=== PATIENT | female | born 1960 | race Caucasian/White ===

== ENCOUNTER 2017-06-08 11:16 | Emergency (ER) | payer OTHER ==
[2017-06-08 11:50] VITALS: BP 150/120
--- NOTE | 2017-06-08 11:55 | ED ---
Abdominal Pain/Female - HPI Summary HPI Summary: Pt here w/ epigastric pain radiating to her shoulder blades. This started late last night and has been intermittently persisting. Pain also radiates up into jaw however she reports this is better w/ Gas-x. She's also noticed dark urine this morning. Denies pain w/ urination, frequency, hesitation or vaginal d/c, lower ab /pelvic pain, flank pain (other than chronic LBP), nausea, vomiting, fever, chills, SERNA. She did have a bout of diarrhea and ab bloating is better since. She admits to a bout of same pain w/ all these sx last month - lasted a few hours then resolved on its own. Still has her gallbladder. H/o HTN - was on med in past but has been well controlled off med so hasn't been taking - takes narcotic pain meds for chronic pain - perhaps this reduced BP rendering her anti-hypertensive unnecessary? She reports BP is typically 120' s/70's - she admits she's in 7/10 pain at the moment but does not want anything - just wants to know what's going on and get it addressed. Denies chest pain, SOB, bloody cough, extremity pain or coolness. H/o surgery w/o difficulty/complications. H/o normal ECG's (none on file here for comparison). NOTE: had lower teeth extracted recently. Is on anbx but reports she had all same sx last month when she did not have dental surgery nor was she on anbx at that time. - History of Current Complaint Chief Complaint: UCGU Stated Complaint: ABD PAIN, DARK URINE Time Seen by Provider: 06/08/17 11:36 Hx Obtained From: Patient Pain Intensity: 7 Allergies/Adverse Reactions: Allergies Allergy/AdvReac Type Severity Reaction Status Date / Time codeine Allergy Vomiting Verified 06/08/17 11:27 [facility] Allergy Vomiting Verified 06/08/17 11:27 Home Medications: Home Medications Amitriptyline TAB* [Elavil TAB*] 25 mg PO BEDTIME 06/08/17 [History Confirmed ] Cephalexin CAP* [Keflex CAP*] 500 mg PO TID 06/08/17 [History Confirmed 06/08/17 ] Cyclobenzaprine TAB* [Flexeril 10 MG TAB*] 10 mg PO TID 06/08/17 [History Confirmed 06/08/17] Diclofenac Potassium [Zipsor] 25 mg PO TID 06/08/17 [History Confirmed 06/08/17] PMH/Surg Hx/FS Hx/Imm Hx Previously Healthy: Yes Endocrine/Hematology History: Denies: Hx Anticoagulant Therapy, Hx Blood Disorders, Hx Diabetes, Hx Thyroid Disease Cardiovascular History: Reports: Hx Hypertension - h/o - not on meds - has been well controlled Respiratory History: Reports: Other Respiratory Problems/Disorders - CHRONIC TOBBACO USE Denies: Hx Asthma - childhood asthma, Hx Chronic Obstructive Pulmonary Disease (COPD), Hx Sleep Apnea GI History: Denies: Hx Ulcer, Other GI Disorders Musculoskeletal History: Reports: Hx Scoliosis Sensory History: Denies: Hx Contacts or Glasses, Hx Hearing Aid Opthamlomology History: Denies: Hx Contacts or Glasses Neurological History: Reports: Hx Headaches Denies: Other Neuro Impairments/Disorders Psychiatric History: Reports: Hx Anxiety - Surgical History Surgery Procedure, Year, and Place: APPY AT AGE 19 [place]. PARTIAL HYSTERECTOMY, [facility]. REMOVED OVARY,[facility]. RIGHT KNEE ARTHROSCOPY, [facility]. RIGHT ARM TENDON RELEASE, [facility]. C6-C7 FUSION 2012, [place] Hx Anesthesia Reactions: No Infectious Disease History: No Infectious Disease History: Denies: Hx Hepatitis, Hx Human Immunodeficiency Virus (HIV), Traveled Outside the in Last 30 Days - Family History Known Family History: Positive: None - Social History Alcohol Use: Rare Hx Substance Use: No Substance Use Type: Reports: None Hx Tobacco Use: Yes Smoking Status (MU): Current Every Day Smoker Type: Cigarettes Amount Used/How Often: 3/4 PPD Length of Time of Smoking/Using Tobacco: 36 YEARS Review of Systems Constitutional: Negative Negative: Fever, Chills, Fatigue Eyes: Negative ENT: Other - dental extraction as mentioned Negative: Sore Throat Cardiovascular: Negative Negative: Chest Pain Respiratory: Negative Negative: Shortness Of Breath, Cough Positive: Abdominal Pain, Diarrhea Positive: see HPI Musculoskeletal: Negative Skin: Negative Neurological: Negative Psychological: Normal All Other Systems Reviewed And Are Negative: Yes Physical Exam Triage Information Reviewed: Yes Vital Signs On Initial Exam: Initial Vitals Temp Pulse Resp BP Pulse Ox 96.8 F 103 18 176/116 98 06/08/17 11:22 06/08/17 11:22 06/08/17 11:22 06/08/17 11:22 06/08/17 11:22 Vital Signs Reviewed: Yes Appearance: Positive: Well-Appearing, Well-Nourished, Pain Distress - appears to be in mild to moderate distress - pleasant, calm, cooperative Skin: Positive: Warm, Skin Color Reflects Adequate Perfusion, Dry Head/Face: Positive: Normal Head/Face Inspection Eyes: Positive: Normal, EOMI, Conjunctiva Clear - anicteric sclera ENT: Positive: Hearing grossly normal, Pharynx normal, Other - skin along mandible w/ healing ecchymosis (yellowish discoloration). Negative: Nasal drainage Neck: Positive: Supple, Nontender, No Lymphadenopathy Respiratory/Lung Sounds: Positive: Clear to Auscultation, Breath Sounds Present. Negative: Rales, Rhonchi, Stridor, Wheezes Cardiovascular: Positive: Pulses are Symmetrical in both Upper and Lower Extremities, S1, S2 - occasional irregular beat (PVC?). Negative: Murmur, Rub Abdomen Description: Positive: No Organomegaly, Soft, Distended - MILD, Other: - (+) Purcell'S SIGN. Negative: CVA Tenderness (R), CVA Tenderness (L), Guarding , Hernia @, Pulsatile Mass Bowel Sounds: Positive: Present Musculoskeletal: Positive: Normal, Strength/ROM Intact Neurological: Positive: Normal, Sensory/Motor Intact, Alert, Oriented to Person Place, Time, CN Intact II-III Psychiatric: Positive: Normal Diagnostics - Vital Signs Vital Signs Temp Pulse Resp BP Pulse Ox 06/08/17 11:48 97.8 F 90 17 150/120 98 06/08/17 11:22 96.8 F 103 18 176/116 98 - Laboratory Lab Results: Lab Results 06/08/17 Range/Units 11:35 POC Urine Color Yellow POC Urine Clarity Clear POC Urine pH 6.5 (5-9) POC Ur Specif [place] <= 1.005 L (1.010-1.030) POC Urine Protein Negative (Negative) POC Ur Glucose (UA) Negative (Negative) POC Urine Ketones Negative (Negative) POC Urine Blood Negative (Negative) POC Urine Nitrite Negative (Negative) POC Urine Bilirubin Negative (Negative) POC Urine Urobilinogen 0.2 (Negative) POC U Leukocyte Esteras Negative (Negative) Lab Statement: Any lab studies that have been ordered have been reviewed, and results considered in the medical decision making process. Abdominal Pain Fem Course/Dx - Course Course Of Treatment: Pt presents w/ epigastric pain radiating to back between shoulder blades w/ diarrhea and dark urine. She had jaw pain and ab bloating but this is better now since diarrhea and taking gas-x. She reports a h/o all same sx 1 month ago which lasted a few hours then resolved on it's own. H/o HTN but has not been taking anti-hypertensives as BP has been well controlled ( 120's/70's). BP is elevated today - could be compensatory response or from pain - ECG checked and is NSR w/o ST elevations, she does have some PVC's. Denies CP, SOB, bloody cough, fever. Urine clear here. Suspect gallbladder d/o clinically however needs labs, imaging. Also w/ h/o HTN and smoking, need to r/ o emergent pathologies (cardiac/pulmonary/vascular issue). Sent to ED - strongly urged to take ambulance however pt declined and opted to drive herself. No meds given prior to departure. Discussed w/ JANEE Olson in ED. NOTE : Last had coffee w/ artifical creamer this morning - otherwise hasn't eaten/ drank since before pain started last night. Has dentures along maxilla. No issues w/ previous anesthesia and denies pulm issues, sleep apnea (chart indicates asthma). - Diagnoses Provider Diagnoses: Abdominal pain - Provider Notifications Discussed Care Of Patient With: Ar Haddad Discharge - Sign-Out/Discharge Documenting (check all that apply): Discharge - Discharge Plan Condition: Guarded Disposition: TRANS HIGHER LVL OF CARE FAC Patient Education Materials: Abdominal Pain (ED) Referrals: Shane Melendez MD [Primary Care Provider] - Additional Instructions: It is suspected that your abdominal pain is the result of a gallbladder or liver issue. This is not a definitive diagnosis however and other issues may be present. It is important that you go directly to the Emergency Department for further evaluation. You determined you will go to [facility] at [address] [place] [address] and so a phone call has been made on your behalf. If you feel worse on your way there and cannot drive, fur puller and call 911 for assistance in transport. Your blood pressure was also found to be elevated - this may be from pain however it is important that you follow-up with your PCP to make sure this is not a new issue. - Billing Disposition and Condition Condition: GUARDED Disposition: EMTALA
== END 2017-06-08 12:20 | disposition short-term general hospital (02) ==
LOC: UCEAST 11:16
DX: R10.13 Epigastric pain (principal); I10 Essential (primary) hypertension; M41.9 Scoliosis, unspecified; R51 Headache; F41.9 Anxiety disorder, unspecified; Z88.5 Allergy status to narcotic agent; F17.210 Nicotine dependence, cigarettes, uncomplicated
CPT/HCPCS: 81003; 93005; 99212; G0463

== ENCOUNTER → 2017-06-08 12:41 | Emergency (ER) | payer OTHER ==
[~2017-06-08 12:41] MED LIST: Iohexol 300* (CONTRAST) 10 ML SDV IV ONE; Morphine INJ* 4 MG/ML 1 ML SYRINGE (NEW SYRINGE VERSION) IV ONE; Morphine VIAL* 4 MG/ML VIAL (1 ml vial) IV ONE; Ondansetron INJ* 2 MG/ML VIAL IV ONE
[2017-06-08 13:21] LABS: ABS Basophils 0 10^3/ul (0-0.2); ABS Eosinophils 0.2 10^3/ul (0-0.6); ABS Lymphocytes 1.5 10^3/ul (1.0-4.8); ABS Monocytes 0.4 10^3/ul (0-0.8); ABS Neutrophils 6.9 10^3/ul (1.5-7.7); ABS Nucleated RBC 0 10^3/ul; Hematocrit 47 % (35-47); Hemoglobin 16.2 g/dl (12.0-16.0); Lymphocyte % 16.5 % (25-47); Mean Corpuscular HGB Conc 35 g/dl (31-36); Mean Corpuscular Hemoglobin 32 pg (27-31); Mean Corpuscular Volume 93 fL (80-97); Nucleated Red Blood Cells % 0; Platelet Count 271 10^3/ul (150-450); Red Blood Count 5.04 10^6/ul (4.0-5.4); Red Cell Distribution Width 13 % (10.5-15)
[2017-06-08 13:25] LABS: Urine Appearance Clear; Urine Blood 1+ (Negative); Urine Color Straw; Urine Ketones Negative (Negative); Urine Protein Negative (Negative); Urine Specific Gravity 1.001 (1.010-1.030); Urine Urobilinogen Negative (Negative)
[2017-06-08 13:42] LABS: EGFR Non-African American 82.8 (>60)
--- NOTE | 2017-06-08 13:52 | RAD ---
HISTORY: Abdominal pain COMPARISONS: None TECHNIQUE: Multiple transverse and longitudinal ultrasound images were obtained of the right upper quadrant of the abdomen using grayscale and color Doppler imaging. FINDINGS: LIVER: There is a heterogeneously hyperechoic lesion of the posterior right lobe of liver measuring 7.7 x 3.6 x 6.8 cm in size. There is normal hepatopedal flow of the portal vein on Doppler imaging. BILIARY TREE: There is no intrahepatic or extrahepatic biliary dilatation. The common duct measures 0.3 cm. GALLBLADDER: The gallbladder is well-visualized. There is no cholelithiasis, gallbladder wall thickening, pericholecystic fluid, or sonographic Batres sign. PANCREAS: The head of the pancreas is unremarkable. The tail of the pancreas is not well visualized secondary to overlying bowel gas. RIGHT KIDNEY: The right kidney is normal in shape, size, contour, and echogenicity. There is no hydronephrosis or nephrolithiasis. The right kidney measures 11.6 x 4 x 5.4 cm. AORTA AND IVC: The aorta and IVC are unremarkable. FLUID: There are no pleural effusions. There is no free fluid within the hepatorenal recess. OTHER FINDINGS: None. IMPRESSION: HETEROGENEOUSLY HYPERECHOIC LESION OF THE RIGHT LOBE OF LIVER. WHILE THE DIFFERENTIAL DOES INCLUDE HEMANGIOMA, THE IMAGING APPEARANCE IS INDETERMINATE. RECOMMEND CONSIDERATION OF FURTHER EVALUATION WITH MULTIPHASE CONTRAST-ENHANCED LIVER PROTOCOL CT OR CONTRAST ENHANCED MRI OF THE ABDOMEN, IN THE NONACUTE SETTING.
--- NOTE | 2017-06-08 15:23 | RAD ---
CLINICAL HISTORY: Abdominal pain COMPARISON: Ultrasound dated June 08, 2014 TECHNIQUE: Multiple contiguous axial CT scans were obtained of the abdomen and pelvis after the administration of intravenous contrast. Coronal and sagittal multiplanar reformations are submitted for review. Oral contrast was not administered. FINDINGS: LUNG BASES: The lung bases are clear. LIVER: There is a low-attenuation lesion of the right lobe of liver with peripheral puddling corresponding to the sonographic finding. This measures 6.3 x 5.2 x 3.6 cm on the current examination. BILE DUCTS: There is no intrahepatic or extrahepatic biliary dilatation. GALLBLADDER: The gallbladder is normal, without pericholecystic inflammatory change. PANCREAS: The pancreas is normal, without mass or ductal dilatation. SPLEEN: Normal in size and appearance. UPPER GI TRACT: Evaluation of the gastrointestinal tract is limited by incomplete gastric distention. The upper GI tract is unremarkable. SMALL BOWEL AND MESENTERY: The small bowel is normal in contour, course, and caliber. There is no obstruction or dilatation. COLON: The colon is normal in contour, course, caliber. There is no pericolonic inflammatory change. ADRENALS: Normal bilaterally. KIDNEYS: The kidneys are normal in shape, size, contour, and axis. There is no hydronephrosis or nephrolithiasis. BLADDER: The bladder is smooth in contour. PELVIC ORGANS: The pelvic organs are not visualized. AORTA: There is calcific atherosclerotic disease of the abdominal aorta and its branches, without aneurysmal dilatation IVC: Unremarkable LYMPH NODES: There is no lymphadenopathy by size criteria. ABDOMINAL WALL: There is no evidence for abdominal wall hernia. BONES AND SOFT TISSUES: There is a scoliotic curvature of the spine. Mild degenerative changes are noted. OTHER: None IMPRESSION: THERE IS A LESION OF THE RIGHT LOBE OF LIVER THAT CORRESPONDS TO THE SONOGRAPHIC FINDING. IN THE ABSENCE OF A HISTORY OF MALIGNANCY, THE CT APPEARANCE IS MOST CONSISTENT WITH A LARGE HEMANGIOMA. ATHEROSCLEROSIS. NO ACUTE CT PATHOLOGY OF THE VISUALIZED ABDOMEN OR PELVIS.
[2017-06-08 15:39] VITALS: BP 115/74
--- NOTE | 2017-06-10 07:53 | ED ---
Kin Ojeda Angela, scribed for Ron Tom MD on 06/08/17 at 1302 . Abdominal Pain/Female - HPI Summary HPI Summary: This pt is a 56 y/o female presenting to [facility] referred from [facility] c/o epigastric abd pain since last night. Pt reports her pain radiates up to between her shoulder blades. She additionally notes very dark urine this morning , nausea, and diarrhea. Pt describes diarrhea as dark brown and watery. Denies vomiting, chest pain, fever, chills. Last night pt notes her pain was severe, rating it 10/10 in severity. Currently pt rates her pain 5 out of 10 in severity. Pt notes she has had this pain before about 2 months ago but it resolved on its own. She reports she has a lot of gas pain, similar to today's, and usually takes Gas-X with relief. PMHx: HTN, was on antihypertensive meds but was taken off due to HTN being under control. - History of Current Complaint Chief Complaint: EDChloe Stated Complaint: ABD PAIN- SENT FROM Time Seen by Provider: 06/08/17 12:59 Hx Obtained From: Patient Onset/Duration: Lasting Hours, Still Present Timing: Hours Severity Currently: Moderate Pain Intensity: 5 Pain Scale Used: 0-10 Numeric Location: Epigastric Radiates: Yes Radiates to: Other - between shoulder blades Aggravating Factor(s): Nothing Alleviating Factor(s): Nothing Associated Signs and Symptoms: Positive: Nausea, Diarrhea, Other: - dark urine. Negative: Fever, Chest Pain, Urinary Symptoms, Vomiting Simlar Episode/Dx as:: gas pain 2 months ago Allergies/Adverse Reactions: Allergies Allergy/AdvReac Type Severity Reaction Status Date / Time codeine Allergy Vomiting Verified 06/08/17 12:56 eszopiclone [From Lun[facility]] Allergy Vomiting Verified 06/08/17 12:56 PMH/Surg Hx/FS Hx/Imm Hx Endocrine/Hematology History: Denies: Hx Anticoagulant Therapy, Hx Blood Disorders, Hx Diabetes, Hx Thyroid Disease Cardiovascular History: Reports: Hx Hypertension - h/o - not on meds - has been well controlled Respiratory History: Reports: Other Respiratory Problems/Disorders - CHRONIC TOBBACO USE Denies: Hx Asthma - childhood asthma, Hx Chronic Obstructive Pulmonary Disease (COPD), Hx Sleep Apnea GI History: Denies: Hx Ulcer, Other GI Disorders Musculoskeletal History: Reports: Hx Scoliosis Sensory History: Denies: Hx Contacts or Glasses, Hx Hearing Aid Opthamlomology History: Denies: Hx Contacts or Glasses Neurological History: Reports: Hx Headaches Denies: Other Neuro Impairments/Disorders Psychiatric History: Reports: Hx Anxiety - Surgical History Surgery Procedure, Year, and Place: [facility]Y AT AGE 19 [place]. PARTIAL [facility]STERECTOMY, [facility]. REMOVED OVARY,[facility]. RIGHT KNEE ARTHROSCOPY, [facility]. RIGHT ARM TENDON RELEASE, [facility]. C6-C7 FUSION 2012, [place] Hx Anesthesia Reactions: No Infectious Disease History: No Infectious Disease History: Denies: Hx Hepatitis, Hx Human Immunodeficiency Virus (HIV), Traveled Outside the [place] in Last 30 Days - Family History Known Family History: Positive: Cardiac Disease, Hypertension - Social History Alcohol Use: Rare Hx Substance Use: No Substance Use Type: Reports: None Hx Tobacco Use: Yes Smoking Status (MU): Current Every Day Smoker Type: Cigarettes Amount Used/How Often: 3/4 PPD Length of Time of Smoking/Using Tobacco: 36 YEARS Review of Systems Negative: Fever, Chills Negative: Chest Pain Negative: Shortness Of Breath Positive: Abdominal Pain, Diarrhea, Nausea. Negative: Vomiting Genitourinary: Other - dark urine Musculoskeletal: Other - pain between shoulder blades Skin: Negative Neurological: Negative All Other Systems Reviewed And Are Negative: Yes Physical Exam - Summary Physical Exam Summary: VITAL SIGNS: Reviewed. GENERAL: Patient is a well-developed and nourished female who is lying comfortable in the stretcher. Patient is not in any acute respiratory distress. HEAD AND FACE: Normocephalic and atraumatic. EYES: PERRLA, EOMI x 2, No injected conjunctiva. EARS: Hearing grossly intact. Ear canals and tympanic membranes are WNL. MOUTH: Oropharynx within normal limits. NECK: Supple, trachea is midline, no adenopathy, no JVD. CHEST: Symmetric, no tenderness at palpation LUNGS: Clear to auscultation bilaterally. No wheezing or crackles. CVS: RRR, S1 and S2 present, no murmurs or gallops appreciated. ABDOMEN: Soft, epigastric tenderness. No signs of distention. Positive bowel sounds. No rebound no guarding, and no masses palpated. No abdominal bruit or pulsations. EXTREMITIES: FROM in all major joints, no edema, no cyanosis or clubbing. NEURO: Alert and oriented x 3. No acute neurological deficits. Speech is normal. SKIN: Dry and warm Triage Information Reviewed: Yes Vital Signs On Initial Exam: Initial Vitals Temp Pulse Resp BP Pulse Ox 96.6 F 97 16 156/100 100 06/08/17 12:53 06/08/17 12:53 06/08/17 12:53 06/08/17 12:53 06/08/17 12:53 Vital Signs Reviewed: Yes Diagnostics - Vital Signs Vital Signs Temp Pulse Resp BP Pulse Ox 06/08/17 12:53 96.6 F 97 16 156/100 100 - Laboratory Result Diagrams: 06/08/17 13:05 06/08/17 13:05 Lab Statement: Any lab studies that have been ordered have been reviewed, and results considered in the medical decision making process. - CT Abdomen/Pelvis CT CT Interpretation: No Acute Changes - IMPRESSION: There is a lesion of the right lobe of liver that corresponds to the sonographic finding. In the absence of a history of malignancy, the CT appearance is most consistent with a large hemangioma. Atherosclerosis. No acute CT pathology of the visualized abdomen or pelvis. Dr. Tom has reviewed this radiology report. CT Interpretation Completed By: Radiologist - Ultrasound No standard instances Ultrasound Interpretation: Positive (See Comments) - Gallbladder US IMPRESSION: Heterogeneously hypercholic lesion of the right lobe of liver. While the differential does include hemangioma, the imaging appearance is indeterminate. Recommend consideration of further evaluation with multiphase contrast-enhanced liver protocol CT or contrast enhanced MRI of the abdomen, in the nonacute setting. Dr. Tom has reviewed this radiology report. Ultrasound Interpretation Completed By: Radiologist Re-Evaluation - Re-Evaluation First Eval Re-Evaluation Time: 15:25 Comment: I reviewed the lab, US, and CT results with the pt. Abdominal Pain Fem Course/Dx - Course Course Of Treatment: This pt is a 56 y/o female presenting to [facility] referred from [facility] c/o epigastric abd pain since last night. Pt reports her pain radiates up to between her shoulder blades. She additionally notes very dark urine this morning, nausea, and diarrhea. Pt describes diarrhea as dark brown and watery. Denies vomiting, chest pain, fever, chills. Last night pt notes her pain was severe, rating it 10/10 in severity. Currently pt rates her pain 5 out of 10 in severity. Pt notes she has had this pain before about 2 months ago but it resolved on its own. She reports she has a lot of gas pain, similar to today's, and usually takes Gas-X with relief. Test results without any significant abnormalities except for hemoglobin of 16.2, CRP of 9.18. US gallbladder shows Heterogeneously hypercholic lesion of the right lobe of liver. While the differential does include hemangioma, the imaging appearance is indeterminate. Recommend consideration of further evaluation with multiphase contrast-enhanced liver protocol CT or contrast enhanced MRI of the abdomen, in the nonacute setting. Abdomen/Pelvis CT reveals there is a lesion of the right lobe of liver that corresponds to the sonographic finding. In the absence of a history of malignancy, the CT appearance is most consistent with a large hemangioma. Atherosclerosis. No acute CT pathology of the visualized abdomen or pelvis. In the ED course the pt was given morphine and Zofran. After these medications the pts symptoms have resolved. Therefore she will be discharged to home with follow up from her PCP. I discussed all the findings and test results with the patient. All questions were answered to patient satisfaction. There were no further complaints or concerns. She is instructed to return to the ED for any worsening or new symptoms. Pt is hemodynamically stable, alert and oriented x3. - Diagnoses Provider Diagnoses: Abdominal pain, Liver lesion, right lobe Discharge - Sign-Out/Discharge Documenting (check all that apply): Discharge - discharge to home - Discharge Plan Condition: Stable Disposition: HOME Patient Education Materials: Abdominal Pain (ED) Referrals: Shane Melendez MD [Primary Care Provider] - 3 Days Additional Instructions: Please follow up with your primary care provider. RETURN TO THE ED FOR ANY NEW OR WORSENING SYMPTOMS. The documentation as recorded by the Kin quezada Angela accurately reflects the service I personally performed and the decisions made by me, Ron Tom MD.
== END | disposition home or self-care (01) ==
LOC: ED 12:41
DX: R10.13 Epigastric pain (principal); K76.9 Liver disease, unspecified; R19.7 Diarrhea, unspecified; Z88.8 Allergy status to other drugs, medicaments and biological substances; I10 Essential (primary) hypertension
CPT/HCPCS: 36415; 74177; 76705; 80053; 81003; 81015; 82150; 82550; 83690; 83880; 84484; 85025; 85730; 86140; 99282; J2270; J2405; Q9967

== ENCOUNTER 2018-05-16 05:38 | Inpatient (IN) | payer BC ==
[~2018-05-16 05:38] MED LIST changes: +Buffered Lidocaine 1% SYRIN* 1 ML/SYRINGE INTRADERM ONE; -Iohexol 300* (CONTRAST) 10 ML SDV IV ONE; -Morphine INJ* 4 MG/ML 1 ML SYRINGE (NEW SYRINGE VERSION) IV ONE; -Morphine VIAL* 4 MG/ML VIAL (1 ml vial) IV ONE; -Ondansetron INJ* 2 MG/ML VIAL IV ONE
--- OUTSIDE RECORDS SUMMARY | 2018-05-16 05:42 | XMS REPORT | Continuity of Care Document ---
:1960 External Reference #:[id number] Author Name NeftaliVonnie Care Team Providers Name Role Phone Shane Melendez MD Primary Care Physician Unavailable Payers Date Identification Numbers Payment Provider Subscriber Policy Number: [id number] [facility] Kell Reddy PayID: [id number] [address] [address] [place] [address] Expires: 2018 Policy Number: [id number] [facility] Kell Reddy PayID: [id number] [address] [address] [place] [address] Expires: 2018 Policy Number: [id number] [employer] Kell Reddy PayID: [id number] [address] [place] [address] Advance Directives Description No Information Available Problems Date Description Provider Status Onset: 02/15/2017 Neck pain Ar Hayes M.D. Active Family History Date Family Member(s) Observation Comments General Heart Disease General Hypertension General Cancer Father Hypertension Mother Heart Disease Mother Breast Cancer Siblings 3 Siblings 3 Sister- heart disease and fibromyalgia Brother- Prostate Cancer Social History Type Date Description Comments Sex Unknown Marital Status Lives With Occupation [employer] ETOH Use Rarely consumes alcohol Recreational Drug Use Never Used Drugs Tobacco Use Start: Unknown End: Patient is a former smoker Unknown Smoking Status Reviewed: 04/17/18 Patient is a former smoker Exercise Type/Frequency Exercises sporadically Allergies, Adverse Reactions, Alerts Date Description Reaction Status Severity Comments 02/15/2017 Tylenol With Codeine Active Medications Medication Date Status Form Strength Qnty SIG Indications Ordering Provider Soft Cervical Active 1unit Apply M47.892 Ar Coles 2018 s collar Eliud, and wear M.D. as tolerable . Cyclobenzaprine 00/00/ Active Tablets 10mg one by Unknown HCL 0000 mouth three times a day as needed spasm Vitamin B12 00/ Active Tablets ER 1000mcg 1 by Unknown 0000 mouth every day Lisinopril 00/ Active Tablets 10mg take 1 Unknown 0000 tablet by mouth once daily Lisinopril 02/15/ Hx Tablets 20mg 90tab 1 by Ar Laurent 2017 - s mouth Abigail, 02/14/ every day M.D. 2016 Amitriptyline HCL 00/ Hx Tablets 25mg 1 by Unknown 0000 - mouth 2017 night at bedtime Oxymorphone HCL 00/00/ Hx Tablets ER 5mg one Unknown ER 0000 - 12HR tablet by 02/15/ mouth q6 2016 as needed Zipsor // Hx Capsules 25mg take 3 Unknown 0000 - times a day as 2018 needed Oxymorphone HCL 0000/ Hx Tablets ER 5mg one Unknown ER 0000 - 12HR tablet po bid 2018 Multi For Her /00/ Hx Tablets once a Unknown 0000 - day 2017 Nasonex 00/ Hx Suspension 50mcg/Act use two Unknown 0000 - sprays in 2018 nostril once daily as needed Ativan /00/ Hx Tablets 1mg 1 tab po Unknown 0000 - bid 2016 Boniva /00/ Hx Tablets 150mg once a Unknown 0000 - month 2017 Norvasc /00/ Hx Tablets 2.5mg 1 by Unknown 0000 - mouth 02/14/ every day 2016 Excedrin Migraine 00/00/ Hx Tablets 250-250-6 1 tab Unknown 0000 - 5mg twice a day as 2018 needed for migraine Oxymorphone HCL 00/00/ Hx Tablets 5mg 1 by Unknown 0000 - mouth 12/20/ every 6 2018 hours as needed Immunizations Description No Information Available Vital Signs Date Vital Result Comment 04/17/2018 1:55pm Height 63 inches 5'3" Weight 137.00 lb BP Systolic Sitting 150 mmHg BP Diastolic Sitting 100 mmHg Pain Level 6 BMI (Body Mass Index) 24.3 kg/m2 03/14/2018 11:50am Height 63 inches 5'3" Weight 137.00 lb BP Systolic Sitting 128 mmHg BP Diastolic Sitting 88 mmHg Pain Level 7 BMI (Body Mass Index) 24.3 kg/m2 02/15/2018 1:04pm Height 63 inches 5'3" Weight 137.00 lb BP Systolic Sitting 140 mmHg BP Diastolic Sitting 70 mmHg Pain Level 6 BMI (Body Mass Index) 24.3 kg/m2 01/16/2018 12:58pm Height 63 inches 5'3" Weight 137.00 lb BP Systolic Standing 150 mmHg BP Diastolic Standing 100 mmHg Pain Level 4 BMI (Body Mass Index) 24.3 kg/m2 01/02/2018 2:03pm Height 63 inches 5'3" Weight 137.00 lb BP Systolic Sitting 140 mmHg BP Diastolic Sitting 100 mmHg Pain Level 7 BMI (Body Mass Index) 24.3 kg/m2 12/21/2017 3:15pm Height 63 inches 5'3" Weight 137.50 lb Heart Rate 92 /min BP Systolic Sitting 160 mmHg BP Diastolic Sitting 100 mmHg Body Temperature 98.0 F Pain Level 7 BMI (Body Mass Index) 24.4 kg/m2 12/13/2017 1:48pm Height 65 inches 5'5" Weight 135.00 lb Heart Rate 89 /min BP Systolic 132 mmHg BP Diastolic 89 mmHg Body Temperature 98.2 F BMI (Body Mass Index) 22.5 kg/m2 02/15/2017 10:08am Height 65 inches 5'5" Weight 150.00 lb Heart Rate 92 /min BP Systolic Sitting 170 mmHg BP Diastolic Sitting 98 mmHg Respiratory Rate 16 /min BMI (Body Mass Index) 25.0 kg/m2 Results Description No Information Available Procedures Date Code Description Status 03/28/2018 05798 Nerve Conduction 07-08 Studies Completed 03/28/2018 40545 Needle Electromyography Complete, Five Or More Muscles Completed Studied Encounters Type Date Location Provider Dx Diagnosis Office Visit 03/14/2018 [facility] M47.892 Other 11:30a Services Of Rekha Quinn MD spondylosis, cervical region M50.30 Other cervical disc degeneration, unsp cervical region M41.9 Scoliosis, unspecified M47.22 Other spondylosis with radiculopathy, cervical region Office Visit 02/15/2018 1:00p Spine Navigator Klaudia Marcelino M47.892 Other spondylosis, Of [facility] PA-C cervical region M54.2 Cervicalgia Office Visit 01/16/2018 1:00p Spine Navigator Klaudia Marcelino, M47.892 Other spondylosis, Of [facility] PA-C cervical region M50.30 Other cervical disc degeneration, unsp cervical region Office Visit 01/02/2018 2:00p Spine Navigator Klaudia Marcelino M47.892 Other spondylosis, Of [facility] PA-C cervical region M50.30 Other cervical disc degeneration, unsp cervical region Office Visit 12/21/2017 3:00p Spine Navigator Klaudia Marcelino, M47.892 Other spondylosis, Of [facility] PA-C cervical region M50.30 Other cervical disc degeneration, unsp cervical region Office Visit 12/13/2017 1:45p [facility] Willis Payton M54.2 Cervicalgia Of Chastity Ortega MD Office Visit 02/15/2017 10:00a [facility] Ar Hayes M54.2 Cervicalgia Services Of [facility] Shyann 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, cervicothoracic region Plan of Treatment Future Appointment(s):06/08/2018 7:30 am - Klaudia Marcelino PA-C at [facility]/08/2018 7:30 am - Donnell Quinn MD at [facility]19/2018 1:00 pm - Donnell Quinn MD at [facility]/30/2018 9:30 am - Donnell Quinn MD at [facility]/17/2018 - Donnell Quinn MDM47.22 Other spondylosis with radiculopathy, cervical regionReferral:Lennox Reese MD, NeurologyFollow up:RV one week, one month, three months ihezcnE42.892 Other spondylosis, cervical dekspsF17.30 Other cervical disc degeneration, unsp cervical region
[2018-05-16] MEDS ORDERED: Acetaminophen TAB* 325 MG PO ONE (06:00)
[2018-05-16] MEDS ORDERED: Gabapentin CAP(*) 300 MG PO ONE (06:00)
[2018-05-16] MEDS ORDERED: Lactated Ringers 1000 ML Bag* 1,000 ML IV SCH ×2 (06:00→12:00)
[2018-05-16] MEDS ORDERED: ceFAZolin 2 GM in NS PREMIX(*) 2 GM/100 ML BAG IVPB ONE (06:25)
[2018-05-16] MEDS ORDERED: Gabapentin CAP(*) 300 MG ONE (06:25)
[2018-05-16] MEDS ORDERED: Acetaminophen TAB* 325 MG ONE (06:25)
[2018-05-16] MEDS ORDERED: Buffered Lidocaine 1% SYRIN* 1 ML/SYRINGE INTRADERM ONE (06:25)
[2018-05-16] MEDS ORDERED: Bacitracin IV* 50,000 UNITS INJ ONE (06:34)
[2018-05-16] MEDS ORDERED: Lidocaine 1% MPF wEPI 200,000* 30 ML SDV ONE (06:34)
[2018-05-16] MEDS ORDERED: Thrombin 5,000 UNITS* 1 APPLIC KIT - topical use - TOPICAL ONE (06:34)
[2018-05-16] MEDS ORDERED: Midazolam* 1 MG/ML 2 ML VIAL (2 MG) ONE (07:25)
[2018-05-16] MEDS ORDERED: fentaNYL* 50 MCG/ML 2 ML VIAL (100 MCG VIAL) ONE ×3 (07:25→12:45)
[2018-05-16] MEDS ORDERED: Famotidine IV* 10 MG/ML 2 ML (20 mg) ONE (07:28)
[2018-05-16] MEDS ORDERED: Succinylcholine* 20 MG/ML 10 ML VIAL ONE (07:44)
[2018-05-16] MEDS ORDERED: Propofol* 10 MG/ML 20 ML BTL ONE (07:44)
[2018-05-16] MEDS ORDERED: Dexamethasone IV* 4 MG/ML 1 ML (4 MG) ONE (07:44)
[2018-05-16] MEDS ORDERED: Cisatracurium* 2 MG/ML MDV 5 ML ONE (07:44)
[2018-05-16] MEDS ORDERED: Phenylephrine INJ* 10 MG/ML 1 ML VIAL (10 MG) ONE (08:23)
[2018-05-16] MEDS ORDERED: VASOPRESSIN 20 UNITS/ML 1 ML VIAL ONE (08:37)
[2018-05-16] MEDS ORDERED: Hetastarch 6% in NS* 500 ML IV ONE (09:04)
[2018-05-16] MEDS ORDERED: DiMENhydriNATE IV* 50 MG/ML VIAL IV PUSH PRN (09:58)
[2018-05-16] MEDS ORDERED: diPHENhydraMINE IV* 50 MG/ML 1 ml VIAL (BENADRYL) IV PRN (09:58)
[2018-05-16] MEDS ORDERED: Ondansetron INJ* 2 MG/ML VIAL IV PRN ×2 (09:58→11:31)
[2018-05-16] MEDS ORDERED: Nalbuphine* 10 MG/ML 1 ML VIAL IV PRN (09:58)
[2018-05-16] MEDS ORDERED: Scopolamine 1.5 mg* PATCH TRANSDERM PRN (09:58)
[2018-05-16] MEDS ORDERED: Levalbuterol 0.63MG/3ML NEB* UNIT OF USE INH PRN (09:58)
[2018-05-16] MEDS ORDERED: Acetaminophen TAB* 325 MG PO PRN ×2 (09:58→11:31)
[2018-05-16] MEDS ORDERED: Naloxone* 0.4 MG/ML 1 ML VIAL IV PRN (09:58)
[2018-05-16] MEDS ORDERED: PROCHLORPERAZINE INJ 5 MG/ML 2 ML VIAL IV PRN (09:58)
[2018-05-16] MEDS ORDERED: Ondansetron INJ* 2 MG/ML VIAL ONE (10:40)
[2018-05-16] MEDS ORDERED: Lidocaine 2% PF * 5 ML VIAL ONE (10:45)
[2018-05-16] MEDS ORDERED: Magnesium Hydroxide LIQ* 30 ML UDC PO PRN (11:31)
[2018-05-16] MEDS: fentaNYL* 50 MCG/ML 2 ML VIAL (100 MCG VIAL) IV PRN ×5 (11:35→12:47)
[2018-05-16] MEDS ORDERED: Cetirizine* 10 MG TAB PO PRN (11:36)
[2018-05-16] MEDS ORDERED: LORazepam TAB(*) 1 MG PO PRN (11:36)
[2018-05-16] MEDS ORDERED: DiMENhydriNATE IV* 50 MG/ML VIAL ONE (12:21)
[2018-05-16] MEDS ORDERED: oxyCODONE/Acetamin 5/325 MG* TAB ONE (13:02)
[2018-05-16] MEDS: oxyCODONE/Acetamin 5/325 MG* TAB PO PRN ×3 (13:06→21:38)
[2018-05-16] MEDS: Morphine VIAL* 4 MG/ML VIAL (1 ml vial) IV PRN (23:42)
[2018-05-17] MEDS: oxyCODONE/Acetamin 5/325 MG* TAB PO PRN ×3 (02:20→11:14)
[2018-05-17] MEDS: Morphine VIAL* 4 MG/ML VIAL (1 ml vial) IV PRN (03:45)
--- NOTE | 2018-05-17 08:43 | PN ---
Progress Note - Progress Note Date of Service: 05/17/18 SOAP: Subjective: [S/p posterior cervical decompression and fusion C3-6, POD #1 Reports posterior neck pain this morning, controlled with PO medication Complains of discomfort with the MJ collar although has been wearing it Neck stiffness Denies fever, headache Eating and drinking well Ambulating independently ] Objective: [ Vital Signs: Temp Pulse Resp BP Pulse Ox 98.3 F 80 16 124/77 94 05/17/18 03:24 05/17/18 03:24 05/17/18 07:11 05/17/18 03:24 05/17/18 04:02 General: Alert, recumbent in bed, NAD Neuro: Motor and sensory intact Incision: Intact with suture, drain dc today without complication. No swelling, erythema. Mild tenderness. Dressing replaced ] Assessment: [Satisfactory postop] Plan: [1. Discharge home today 2. Discharge instructions discussed 3. Medications sent to [facility] pharmacy]
[2018-05-17 08:48] VITALS: BP 139/74
[2018-05-17] MEDS ORDERED: Lisinopril TAB* 10 MG PO SCH (09:00)
--- NOTE | 2018-05-17 21:24 | OP ---
DATE OF SURGERY: 05/16/18 - ROOM #334 DATE OF : 62 SURGEON: Donnell Quinn MD OUTSIDE SALES REPRESENTATIVE: JANEE Porter. The case was done with the assistance of surgical PA because of the complexity of the case. ANESTHESIA: General. PRE-OP DIAGNOSIS: Degenerative disk disease of cervical spine with C4-5 anterolisthesis and instability with significant neural foraminal stenosis. POST-OP DIAGNOSIS: Degenerative disk disease of cervical spine with C4-5 anterolisthesis and instability with significant neural foraminal stenosis. OPERATIVE PROCEDURE: The patient underwent posterior cervical decompression and fusion, C3- C6 with lateral mass screws at C3, C4, C5, and C6 with locally harvested bone graft and DBX as well as left C5-6 and C6-7 foraminotomies. ESTIMATED BLOOD LOSS: 60 cc. COMPLICATIONS: None. SUMMARY: The patient is a very pleasant 57-year-old female with a history of anterior cervical fusion at C5-6 and 6-7 with significant scoliosis and cervicothoracic kyphosis. The patient had complaints of neck pain bilaterally radiating mostly to the left shoulder and left upper extremity. She was found to be a candidate for surgical intervention after failing conservative modalities and after explaining expectations, limitations, possible complications of the procedure with complications including but not limited to bleeding, infection, risk of injury to adjacent structures, coma, paralysis, , need for additional procedure, anesthesia risk, stroke, blindness, cancer , instability, hardware failure, adjacent level disease, pseudoarthrosis, need for additional operations, spinal fluid leak, injury of the nerve roots or spinal cord, inability to improve, the patient was agreeable to proceed with surgery and informed consent was obtained. This was discussed with the patient' s family including her daughter and her brother. The patient understood that her condition may not improve and in fact may get worse after the surgery and that she may need to have additional procedures in the future. She also understood that the operative plan may be modified according to intraoperative findings and conditions and that at that procedure may be abandoned or done in more than 1 stage. She also understood that she may need to have additional procedures in the future to correct her deformity, but elected to proceed with the minimal procedure for now. DESCRIPTION OF PROCEDURE: The patient was brought to the operating room, was placed under general anesthesia by the Anesthesia team. She was carefully positioned prone on the Krzysztof table and all bony prominences were meticulously padded. Her skin was prepped and draped in a standard fashion. After appropriate surgical pause and patient identification, a midline incision was marked on the skin over the spinous process of C2-C7 approximately. The skin was infiltrated with local anesthetic and #10 surgical blade was used to incise the skin. Incision was deepened with Bovie cautery and self-retaining retractors were introduced into the field. Dorsal fascia was then divided with Bovie cautery on both sides of midline and the paraspinal musculature was elevated in a subperiosteal fashion with periosteal elevators and Bovie cautery. Self-retaining retractors were introduced further into the field and imaging was performed of operative levels. The lateral masses of C3, C4, C5, and C6 were then gently exposed and towboat pilot holes were drilled at each level for placement of the lateral mass screws. A [employer] instrumentation was used and 3.5 x 12 mm screws were placed on the right C3, C4, C5, and C6 after hand drilling the proposed trajectory, tapping and checking with Batres probe. The same was performed at the left side for C3 and C4 lateral masses, while the towboat pilot holes were drilled at C5 and C6. Then high-speed drill was used to perform extensive foraminotomies on the left C5-6 and C6-7. After extensive foraminotomies with #1 Kerrison punches, the foramina were found to be free of any pressure phenomenon and nerve roots were completely free. Then, 2 cobalt chrome rods were then used and fashioned to secure the screw heads in place with the screw head cups. High-speed drill was then used to fashion a laminectomy between C3 and C6, which was completed with Leksell rongeurs and Kerrison punches. The locally harvested bone graft was then morselized and was used as a graft for the arthrodesis part of the procedure after being mixed with DBX. High-speed drill was used to decorticate the lateral masses and facets of each level and the bone graft was then carefully placed. The self- retaining retractors were removed from the field and after confirming of meticulous hemostasis and copious irrigation and meticulous inspection, the wound was closed by layers over a Jakob drain which was tunneled through a separate stab wound incision. The 0 interrupted Vicryl suture was used to approximate the dorsal fascia while 2-0 inverted interrupted Vicryl sutures were used to approximate the subcutaneous tissue in an inverted interrupted fashion. The skin was then approximated with Prolene running interrupted suture and was covered with sterile sponges and sterile dressings. At the end of the procedure, all counts were reported to be correct. The patient remained hemodynamically stable throughout the case. The patient was turned supine, was extubated and was transferred to the Recovery in excellent condition. The case was done with the assistance of surgical team because of the complexity of the case. [id number] #: [id number] MTDD
--- NOTE | 2018-05-18 22:23 | DS ---
DISCHARGE SUMMARY: DATE OF ADMISSION: 05/16/18 DATE OF DISCHARGE: 05/19/18 ADMISSION DIAGNOSIS: Degenerative disk disease. DISCHARGE DIAGNOSIS: Degenerative disk disease. DISPOSITION: Home. CONDITION ON DISCHARGE: Good. HOSPITAL COURSE: The patient is a very pleasant 57-year-old female with a history of anterior cervical fusion at C5-6 and 6-7 with significant scoliosis and cervicothoracic kyphosis. The patient had complaints of neck pain radiating to the left shoulder and left upper extremity. She was found to be a candidate for posterior cervical decompression and fusion, C3-C6. She underwent the above procedure, tolerated the procedure well and was able to be transferred to the floor. She was felt to be ready to be discharged home on postop day 1 after having good pain control, able to tolerate p.o. well, ambulating and using the bathroom with resolution of her preoperative pain. Full discharge instructions were given. [id number] #: [id number] MTDKris
[2018-05-19] MEDS ORDERED: Scopolamine PATCH Remove* 1 NOTE MISC PATCH OFF ONE (09:59)
== END 2018-05-17 11:47 | disposition home or self-care (01) | DRG 321 ==
LOC: AA 05:38 → SSU 11:31
PROVIDERS: ADMIT Neurological Surgery; ATTEND Neurological Surgery
PROC: 0RG2071 Fusion of 2 or more Cervical Vertebral Joints with Autologous Tissue Substitute, Posterior Approach, Posterior Column, Open Approach (ICD-10-PCS; principal; 2018-05-16 07:30)
DX: M50.122 Cervical disc disorder at C5-C6 level with radiculopathy (principal); M47.22 Other spondylosis with radiculopathy, cervical region; M47.892 Other spondylosis, cervical region; M25.78 Osteophyte, vertebrae; M40.13 Other secondary kyphosis, cervicothoracic region; Z88.6 Allergy status to analgesic agent; Z79.899 Other long term (current) drug therapy; Z87.891 Personal history of nicotine dependence
CPT/HCPCS: 72040; 76000; A9270-GY; J0330; J0690; J1100; J1240; J2001; J2250; J2270; J2405; J2704; J3010

== ENCOUNTER 2019-04-29 11:02 | Emergency (ER) | payer BC, OTHER ==
--- OUTSIDE RECORDS SUMMARY | 2019-04-29 11:40 | XMS REPORT | Continuity of Care Document ---
:1960 External Reference #:[id number] Author Name Marc Payne DO, MPH Address [address] [place] [address], [address] [place] [address] Care Team Providers Name Role Phone Eduardo Gonzalez R., M.D. - Care Team Information Registered Respiratory Technician [phone] Neurological Surgery Shane Melendez M.D. - Family Care Team Information Registered Respiratory Technician Medicine Problems Active Problems Provider Date Chronic postoperative pain Marc Payne DO, MPH Onset: 11/25/2018 Diffuse cervicobrachial syndrome Marc Payne DO, MPH Onset: 11/25/2018 Brachial neuritis Marc Payne DO MPH Onset: 11/25/2018 Spinal enthesopathy Marc Payne DO MPH Onset: 11/25/2018 Myalgia of auxiliary muscles, head and neck Marc Payne DO MPH Onset: Social History Type Date Description Comments Sex Unknown Cigarette Use Current Cigarette Smoker 1 Pack Daily ETOH Use Occasionally consumes alcohol Recreational Drug Use Never Used Drugs Tobacco Use Start: Unknown Patient is a current smoker, smokes every day Smoking Status Reviewed: 04/04/19 Patient is a current smoker, smokes every day Allergies, Adverse Reactions, Alerts Active Allergies Reaction Severity Comments Date Tylenol W/Codeine Nausea and Vomiting 03/23/2012 Lunesta vomit 11/09/2018 Medications Active Medications SIG Qnty Indications Ordering Provider Date Lorzone 1 by mouth three 90tabs Marc Payne DO, 04/04/2019 375mg Tablets times a day MPH Dilaudid si every 8 to 90tabs Marc Payne DO, 2018 2mg Tablets 12 hours as MPH directed chronic pain patient Lisinopril qd Unknown 20mg Tablets Diazepam si by mouth Unknown 5mg Tablets every 12 hours Duloxetine HCL 2 cap by mouth Unknown 30mg every day as Caps DR Part directed chronic pain patient. History Medications Oxymorphone HCL ER si by mouth 60tabs Marc Payne, 11/09/2018 - 5mg every 12 hours DO, MPH 2018 Tablets ER 12HR chronic pain patient Immunizations Description No Information Available Vital Signs Date Vital Result Comment 04/04/2019 9:32am BP Systolic 128 mmHg BP Diastolic 80 mmHg Heart Rate 84 /min Respiratory Rate 20 /min Height 65 inches 5'5" Weight 138.00 lb Pain Level 6 Pain at this time. Pain Level With Medicine 6 on average with meds Pain Level Without Medicine 9 without meds BMI (Body Mass Index) 23.0 kg/m2 03/05/2019 2:19pm BP Systolic 128 mmHg BP Diastolic 76 mmHg Heart Rate 74 /min Respiratory Rate 20 /min Height 65 inches 5'5" Weight 136.00 lb Pain Level 6 Pain at this time. Pain Level With Medicine 5 on average with meds Pain Level Without Medicine 9 without meds BMI (Body Mass Index) 22.6 kg/m2 Results Description No Information Available Procedures Date Code Description Status 12/23/2018 18264 Injection For Nerve Block, Suprascapular Nerve Completed 12/23/201826354 Injection, Single Or Mutiple Trigger Points One Or Two Completed Muscles 12/23/201861508 Injection, Tendon Origin/Insertion Completed 12/23/201826623 Injection, Tendon Origin/Insertion Completed 12/23/201803241 Inject Tendon/Ligament Completed 12/23/201826530 Inject Tendon/Ligament Completed 12/23/201839720 Inject Tendon/Ligament Completed 12/23/201865451 Inject Tendon/Ligament Completed 12/23/201849984 Inject Tendon/Ligament Completed 11/25/201868161 Inject Tendon/Ligament Completed 11/25/201844186 Inject Tendon/Ligament Completed 11/25/201869273 Inject Tendon/Ligament Completed 11/25/201820209 Inject Tendon/Ligament Completed 11/25/201844384 Inject Tendon/Ligament Completed 11/25/201854128 Injection, Tendon Origin/Insertion Completed 11/25/201844028 Injection, Tendon Origin/Insertion Completed 11/25/2018 Injection, Single Or Mutiple Trigger Points One Or Two Completed Muscles 11/25/2018 23558 Injection For Nerve Block, Suprascapular Nerve Completed Medical Devices Description No Information Available Encounters Type Date Location Provider Dx Diagnosis Office Visit 03/05/2019 Main Office as Marc Payne G89.28 Other chronic 1:45p Of 04/07/13 DO, MPH postprocedural pain M53.1 Cervicobrachial syndrome M79.12 Myalgia of auxiliary muscles, head and neck Z79.891 [facility] (current) use of opiate analgesic Office Visit 01/29/2019 11:15a Main Office Marc Payne G89.28 Other chronic as Of 04/07/13 DO, MPH postprocedural pain M53.1 Cervicobrachial syndrome M54.2 Cervicalgia M79.12 Myalgia of auxiliary muscles, head and neck Z79.891 [facility] (current) use of opiate analgesic Office Visit 01/04/2019 10:30a Main Office Marc Payne G89.28 Other chronic as Of 04/07/13 DO, MPH postprocedural pain M53.1 Cervicobrachial syndrome M54.2 Cervicalgia M79.12 Myalgia of auxiliary muscles, head and neck 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 Office Visit 12/23/2018 9:45a Main Office Marc Payne G89.28 Other chronic as Of 04/07/13 DO, MPH postprocedural pain M53.1 Cervicobrachial syndrome M54.2 Cervicalgia M79.12 Myalgia of auxiliary muscles, head and neck M65.88 Other synovitis and tenosynovitis, other site M46.02 Spinal enthesopathy, cervical region Office Visit 2018 9:00a Main Office Marc Payne G89.28 Other chronic as Of 04/07/13 DO, MPH postprocedural pain M53.1 Cervicobrachial syndrome M54.2 Cervicalgia M54.13 Radiculopathy, cervicothoracic region M79.12 Myalgia of auxiliary muscles, head and neck Z79.891 [facility] (current) use of opiate analgesic Office Visit 11/25/2018 9:00a Main Office PayneRamonita navaph, G89.28 Other chronic as Of 04/07/13 DO, MPH postprocedural pain M53.1 Cervicobrachial syndrome M54.2 Cervicalgia M54.13 Radiculopathy, cervicothoracic region M79.12 Myalgia of auxiliary muscles, head and neck M46.02 Spinal enthesopathy, cervical region M65.88 Other synovitis and tenosynovitis, other site Office Visit 11/09/2018 11:15a Main Office PayneRamonita navaph, G89.28 Other chronic as Of 04/07/13 DO, MPH postprocedural pain M53.1 Cervicobrachial syndrome M54.13 Radiculopathy, cervicothoracic region M25.511 Pain in right shoulder 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 Assessments Date Code Description Provider 04/04/2019 G89.28 Other chronic postprocedural pain Ramonita Payneph DO, MPH 04/04/2019 M53.1 Cervicobrachial syndrome Payne, Marc, DO, MPH 04/04/2019 M79.12 Myalgia of auxiliary muscles, head and neck PayneMarc nava DO, MPH 04/04/2019 M54.13 Radiculopathy, cervicothoracic region Payne, Marc, DO, MPH 04/04/2019 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 PayneMarc nava , DO, MPH 04/04/2019 Z13.31 Encounter for screening for depression PayneMarc nava, DO, MPH 03/05/2019 G89.28 Other chronic postprocedural pain Payne, Marc, DO, MPH 03/05/2019 M53.1 Cervicobrachial syndrome Payne, Marc, DO, MPH 03/05/2019 M79.12 Myalgia of auxiliary muscles, head and neck Payne, Marc, DO, MPH 03/05/2019 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 Payne, Marc , DO, MPH 01/29/2019 G89.28 Other chronic postprocedural pain Payne, Marc, DO, MPH 01/29/2019 M53.1 Cervicobrachial syndrome Payne, Marc, DO, MPH 01/29/2019 M54.2 Cervicalgia Payne, Marc, DO, MPH 01/29/2019 M79.12 Myalgia of auxiliary muscles, head and neck Payne, Marc, DO, MPH 01/29/2019 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 Payne, Marc , DO, MPH 01/04/2019 G89.28 Other chronic postprocedural pain Payne, Marc, DO, MPH 01/04/2019 M53.1 Cervicobrachial syndrome Payne, Marc, DO, MPH 01/04/2019 M54.2 Cervicalgia Payne, Marc, DO, MPH 01/04/2019 M79.12 Myalgia of auxiliary muscles, head and neck Payne, Marc, DO, MPH 01/04/2019 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 Payne, Marc , DO, MPH 12/23/2018 G89.28 Other chronic postprocedural pain Payne, Marc, DO, MPH 12/23/2018 M53.1 Cervicobrachial syndrome Payne, Marc, DO, MPH 12/23/2018 M54.2 Cervicalgia Payne, Marc, DO, MPH 12/23/2018 M79.12 Myalgia of auxiliary muscles, head and neck Payne, Marc, DO, MPH 12/23/2018 M65.88 Other synovitis and tenosynovitis, other Payne, Marc, DO , MPH site 12/23/2018 M46.02 Spinal enthesopathy, cervical region Payne, Marc, DO, MPH 2018 G89.28 Other chronic postprocedural pain Payne, Marc, DO, MPH 2018 M53.1 Cervicobrachial syndrome Payne, Marc, DO, MPH 2018 M54.2 Cervicalgia Payne, Marc, DO, MPH 2018 M54.13 Radiculopathy, cervicothoracic region Payne, Marc, DO, MPH 2018 M79.12 Myalgia of auxiliary muscles, head and neck PayneMarc nava DO, MPH 2018 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 Marc Payne DO, MPH 11/25/2018 G89.28 Other chronic postprocedural pain PayneMarc nava DO, MPH 11/25/2018 M53.1 Cervicobrachial syndrome PayneRamonita navaph DO, MPH 11/25/2018 M54.2 Cervicalgia PayneMarc nava DO, MPH 11/25/2018 M54.13 Radiculopathy, cervicothoracic region PayneRamonita navaph DO, MPH 11/25/2018 M79.12 Myalgia of auxiliary muscles, head and neck PayneMarc nava DO, MPH 11/25/2018 M46.02 Spinal enthesopathy, cervical region PayneMarc nava DO, MPH 11/25/2018 M65.88 Other synovitis and tenosynovitis, other Marc Payne DO , MPH site 11/09/2018 G89.28 Other chronic postprocedural pain Marc Payne DO, MPH 11/09/2018 M53.1 Cervicobrachial syndrome Marc Payne DO, MPH 11/09/2018 M54.13 Radiculopathy, cervicothoracic region PayneMarc nava DO, MPH 11/09/2018 M25.511 Pain in right shoulder Marc Payne DO, MPH 11/09/2018 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 Symptoms and complaints discussed and reviewed today. No significant changes in physical findings. Continue current medical pain management.M53.1 Cervicobrachial syndromeComments:Chronic. Symptoms and complaints discussed and reviewed today. No significant changes in physical findings. Continue current medical pain management.M79.12 Myalgia of auxiliary muscles, head and neckComments:Chronic. Symptoms and complaints discussed and reviewed today. No significant changes in physical findings. Continue current medical pain management.M54.13 Radiculopathy, cervicothoracic regionComments:Chronic. Symptoms and complaints discussed and reviewed today. No significant changes in physical findings. Continue current medical pain management.Z79.891 [facility] (current) use of opiate analgesicNew Labs:Urine Drug Screen, Ordered: 04/04/19Comments:Urine drug screen sample taken today to monitor opiate use and to monitor use of illicit substances.Will discuss results at next appointment.The following tests were ordered:6 AM, AMPH, KULWANT, SHIMON, BUP, CARIS, COCM, ETG, FENT, MCSHSG, OPI, OXY, PCP, TAPEN, XTSY, ZOLP. A urine drug test (UDT) was ordered for this patient and collected on site today. Creatinine has been ordered as well for specimen validity, not for kidney function. Preliminary UDT results are not final and should not be used to determine patient care or plan of treatment. Initially a qualitative immunoassay screen will bedone. Any inconsistent or positive findings will be further tested with a more comprehensive quantitative confirmation LCMS study. It is part of the treatment process of prescribing controlled substances and is considered standard of care.Z13.31 Encounter for screening for depressionComments:PHQ-9 Depression Screen administered today, results were negative at this time. No positive symptoms on the Patient Health Questionnaire. Will follow up or repeat Screen as necessary in the future Will follow as pertains to their pain. Patient seems to be stable today.AllNew Medication:Lorzone 375 mg - 1 by mouth three times a dayComments:Continue current medical pain management; injection therapy, osteopathic manipulation, PT / modalities, and consults as needed to manage chronic pain.Non - opioid pain management discussed and optionsdiscussed.Side effects discussed; anticipatory guidance given. Patient clearly understand and agree with all medical treatments and suggestions. 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 Importance of regular nutrition throughout the day discussed.Activity as toleratedContinue with PCP Functional Status Description No Information Available Mental Status Description No Information Available Referrals Description No Information Available
--- OUTSIDE RECORDS SUMMARY | 2019-04-29 11:40 | XMS REPORT | Continuity of Care Document ---
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 Onset: 02/15/2017 Disorder of shoulder Rocky Clifton MD Onset: 09/26/2018 Localized, secondary osteoarthritis of the Rocky Clifton MD Onset: 09/26/2018 shoulder region Injury of shoulder region Rocky Clifton MD Onset: 09/26/2018 Social History Type Date Description Comments Sex Unknown ETOH Use Rarely consumes alcohol Recreational Drug Use Never Used Drugs Tobacco Use Start: Unknown End: Patient is a former smoker Unknown Smoking Status Reviewed: 04/03/19 Patient is a former smoker Exercise Type/Frequency Exercises sporadically walks Allergies, Adverse Reactions, Alerts Active Allergies Reaction Severity Comments Date Tylenol With Codeine 02/15/2017 Lunesta 09/26/2018 Medications Active Medications SIG Qnty Indications Ordering Provider Date Lisinopril take 1 tablet by Unknown 10mg Tablets mouth once daily Multi Complete daily Unknown Capsules Loratadine once a day for Unknown 10mg Capsules allergies as needed Cymbalta 1 by mouth every Unknown 30mg Caps DR day for 1 week Part then 2 daily ongoing Hydromorphone HCL TK 1 T PO Q 12 H Unknown 2mg as Directed MDD 2 Tablets Medications Administered in Office Medication SIG Qnty Indications Ordering Provider Date Records Fee Donnell Quinn MD 01/31/2019 Injection Records Fee Rocky Clifton MD 01/29/2019 Injection Records Fee Rivera Hood MD, FACS 01/22/2019 Injection Triamcinolone (Kenalog) Rocky Clifton MD 11/21/2018 Injection Triamcinolone (Kenalog) Rocky Clifton MD 09/26/2018 Injection Immunizations Description No Information Available Vital Signs Date Vital Result Comment 04/03/2019 1:12pm Height 63 inches 5'3" Weight 130.00 lb Heart Rate 72 /min BP Systolic Sitting 128 mmHg BP Diastolic Sitting 88 mmHg Respiratory Rate 16 /min Pain Level 4 O2 % BldC Oximetry 96 % BMI (Body Mass Index) 23.0 kg/m2 03/27/2019 12:52pm Height 63 inches 5'3" Weight 131.00 lb Heart Rate 84 /min BP Systolic 152 mmHg BP Diastolic 96 mmHg Pain Level 8 Head neck and shoulders BMI (Body Mass Index) 23.2 kg/m2 Results Description No Information Available Procedures Date Code Description Status 04/03/2019 39436 Inject/Drain Joint/Bursa Major W/O US Completed 11/21/2018 06315 Inject/Drain Joint/Bursa Major W/O US Completed Medical Devices Description No Information Available Encounters Type Date Location Provider Dx Diagnosis Office Visit 01/02/2019 [facility] Rocky Clifton MD M75.41 Impingement 10:15a at [place] syndrome of right shoulder M75.42 Impingement syndrome of left shoulder Office 12/13/2018 [facility] M47.22 Other spondylosis Visit 3:00p [facility] Quinn MD with radiculopathy, cervical region 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, cervicothoracic region Office Visit 12/01/2018 [facility], Z48.89 Encounter for 11:30a [facility] WELLER other specified surgical aftercare Office Visit 10/25/2018 [facility] M47.22 Other spondylosis 1:00p [facility] Quinn MD with radiculopathy, cervical region 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, cervicothoracic region [facility]2018 [facility] M75.41 Imp[facility]ement at [place] MD syndrome of right shoulder M75.42 Impingement syndrome of left shoulder 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, left shoulder S46.102A Unsp injury of musc/fasc/tend long hd bicep, left arm, init Office 10/05/2018 [facility] M47.22 Other spondylosis Visit 11:00a [facility] Quinn MD with radiculopathy, cervical region 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, cervicothoracic region Assessments Date Code Description Provider 04/03/2019 M75.41 Impingement syndrome of right shoulder Rocky Clifton MD 03/27/2019 M50.30 Other cervical disc degeneration, Dnonell Quinn MD unspecified cervical region 03/27/2019 M41.9 Scoliosis, unspecified Donnell Quinn MD 01/31/2019 M50.30 Other cervical disc degeneration, Donnell Quinn MD unspecified cervical region 01/31/2019 M41.9 Scoliosis, unspecified Donnell Quinn MD 01/29/2019 M50.30 Other cervical disc degeneration, Rocky Clifton MD unspecified cervical region 01/29/2019 M41.9 Scoliosis, unspecified Rocky Clifton MD 01/22/2019 M50.30 Other cervical disc degeneration, Rivera Hood MD, FACS unspecified cervical region 01/22/2019 M41.9 Scoliosis, unspecified Rivera Hood MD, FACS 01/02/2019 M75.41 Impingement syndrome of right shoulder Rocky Clifton MD 01/02/2019 M75.42 Impingement syndrome of left shoulder Rocky Clifton MD 12/13/2018 M47.22 Other spondylosis with radiculopathy, Donnell Quinn MD cervical region 12/13/2018 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, Donnell Quinn MD cervicothoracic region 12/01/2018 Z48.89 Encounter for other specified surgical JANEE Warner aftercare 11/21/2018 M75.41 Impingement syndrome of right shoulder Rocky Clifton MD 11/21/2018 M75.42 Impingement syndrome of left shoulder Rocky Clifton MD 11/21/2018 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, left shoulder Rocky Clifton MD 11/21/2018 S46.102A Unspecified injury of muscle, fascia and Rocky Clifton MD tendon of long head 10/25/2018 M47.22 Other spondylosis with radiculopathy, Donnell Quinn MD cervical region 10/25/2018 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, Donnell Quinn MD cervicothoracic region 10/20/2018 M75.41 Impingement syndrome of right shoulder Rocky Clifton MD 10/20/2018 M75.42 Impingement syndrome of left shoulder Rocky Clifton MD 10/20/2018 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, left shoulder Rocky Clifton MD 10/20/2018 S46.102A Unspecified injury of muscle, fascia and Rocky Clifton MD tendon of long head 10/05/2018 M47.22 Other spondylosis with radiculopathy, Donnell Quinn MD cervical region 10/05/2018 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, Donnell Quinn MD cervicothoracic region Plan of Treatment Future Appointment(s):06/29/2019 11:00 am - Donnell Quinn MD at [facility]05/18/2019 8:30 am - Donnell Quinn MD at [facility]04/03/2019 - Rocky Clifton MDM75.41 Impingement syndrome of right shoulderFollow up:Follow up: asneeded Functional Status Description No Information Available Mental Status Description No Information Available Referrals Refer to Dr Reason for Referral Status Appt Date Edinson RODRIGUEZ MD, PHD [address] [place] [address] [phone] Jolene Hansen MD left trapezium mass on MRI Closed [address] [place] [address] [phone]
--- OUTSIDE RECORDS SUMMARY | 2019-04-29 11:40 | XMS REPORT | Continuity of Care Document ---
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 Provider Date Neck pain [...] a former smoker Unknown Smoking Status Reviewed: 03/27/19 Patient is a former smoker Exercise Type/Frequency [...] Available Vital Signs Date Vital Result Comment 03/27/2019 12:52pm Height 63 inches 5'3" Weight 131.00 lb Heart Rate 84 /min BP Systolic 152 mmHg BP Diastolic 96 mmHg Pain Level 8 Head neck and shoulders BMI (Body Mass Index) 23.2 kg/m2 01/02/2019 10:48am Height 63 inches 5'3" Weight 146.00 lb Heart Rate 72 /min BP Systolic 138 mmHg BP Diastolic 98 mmHg Respiratory Rate 17 /min Body Temperature 98.0 F Pain Level 5 BMI (Body Mass Index) 25.9 kg/m2 Results Description No Information Available Procedures Date Code Description Status 11/21/2018 43674 Inject/Drain Joint/Bursa Major W/O US Completed 09/26/2018 50523 Inject/Drain Joint/Bursa Major W/O US Completed Medical Devices Description No Information Available Encounters Type Date Location Provider Dx Diagnosis Office Visit 01/02/2019 [facility] Rocky Clifton MD M75.41 Impingement 10:15a at [place] syndrome of right shoulder M75.42 Impingement syndrome [...] kyphosis, cervicothoracic region Office Visit 10[facility] [place] syndrome of right shoulder M75.42 Impingement syndrome of left shoulder 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, left shoulder S46.102A Unsp injury of musc/fasc/tend long hd bicep, left arm, init Office 10/05/2018 [facility] M47.22 Other spondylosis Visit 11:00a [facility] MD with radiculopathy, cervical region 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, cervicothoracic region Office Visit 09/29/2018 9:45a [facility] Hood, D17.0 [facility], FACS neoplm of skin, subcu of head, face and neck Office Visit 09/26/2018 9:30a Ne Clifton M75.41 Impingement Orthopedics at OR syndrome of right [place] shoulder M75.42 Impingement syndrome of left shoulder 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, left shoulder S46.102A Unsp injury of musc/fasc/tend long hd bicep, left arm, init M75.112 Incomplete rotatr-cuff tear/ruptr of l shoulder, not trauma Office Visit 09/25/2018 [facility] T81.31xD Disruption of 1:30p [facility] Quinn MD external operation (surgical) wound, NEC, subs Assessments Date Code Description Provider 03/27/2019 M50.30 Other cervical disc degeneration, Donnell Quinn MD unspecified cervical region 03/27/2019 M41.9 Alicia, unspecallyson Qiunn MD 01/31/2019 M50.30 Other cervical disc degeneration, [...] MD cervical region 10/25/2018 M40.13 Other secondary milady, Donnell Quinn MD cervicothoracic region 10/20/2018 M75.41 [...] secondary kyphosis, Donnell Quinn MD cervicothoracic region 09/29/2018 D17.0 Benign lipomatous neoplasm of skin and Rivera Hood MD, FACS subcutaneous tissue o 09/26/2018 M75.41 Impingement syndrome of right shoulder Rocky Clifton MD 09/26/2018 M75.42 Impingement syndrome of left shoulder Rocky Clifton MD 09/26/2018 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, left shoulder Rocky Clifton MD 09/26/2018 S46.102A Unspecified injury of muscle, fascia and Rocky Clifton MD tendon of long head 09/26/2018 M75.112 Incomplete rotator cuff tear or rupture Rocky Clifton MD of left shoulder, not specified as traumatic 09/25/2018 T81.31xD Disruption of external operation Donnell Quinn MD (surgical) wound, not elsewhere classified, subsequent encounter Plan of Treatment Future Appointment(s):06/29/2019 11:00 am - Donnell Quinn MD at [facility]04/03/2019 1:15 pm - Rocky Clifton MD at [facility] at [facility]/18/2019 8:30 am - Donnell Quinn MD at [facility]03/27/2019 - Donnell Quinn, MDM50.30 Other cervical disc degeneration, unsp cervical lwaszxJ22.9 Scoliosis, unspecifiedFollow up:RV in 3 months Functional Status Description No Information Available Mental Status Description No Information Available Referrals Refer to Reason for Referral Status Appt Date Jolene Hansen MD left trapezium mass on MRI Closed [address] [place] [address] [phone]
--- OUTSIDE RECORDS SUMMARY | 2019-04-29 11:40 | XMS REPORT | Continuity of Care Document ---
:1960 External Reference #:[id number] Author Name Marc Payne DO, MPH Address [address] [place] [address], [address] [place] [address] Care Team Providers Name Role Phone Eduardo Gonzalez R., M.D. - Care Team Information Trimming Caser [phone] Neurological Surgery Shane Melendez M.D. - Family Care Team Information Trimming Caser Medicine Problems Active Problems Provider Date Chronic postoperative pain Marc Payne DO, MPH Onset: 11/25/2018 Diffuse cervicobrachial syndrome Marc Payne DO MPH Onset: 11/25/2018 Brachial neuritis Marc Payne [...] smoker, smokes every day Smoking Status Reviewed: 04/14/19 Patient is a current smoker, smokes every day Allergies, Adverse Reactions, Alerts Active Allergies Reaction Severity Comments Date Tylenol W/Codeine Nausea and Vomiting 03/23/2012 Lunesta vomit 11/09/2018 Medications Active Medications SIG Qnty Indications Ordering Date Provider Chlorzoxazone si by mouth 60tabs Marc Payne, 04/10/2019 500mg every 8-12 hours DO, MPH Tablets as needed, chronic pain patient Dilaudid si every 8 to 90tabs Marc Payne, 2018 2mg Tablets 12 hours as DO MPH directed chronic pain patient Lisinopril qd Unknown 20mg Tablets Diazepam si by mouth Unknown 5mg Tablets every 12 hours Duloxetine HCL 2 cap by mouth Unknown 30mg Caps every day as DR Part directed chronic pain patient. History Medications Oxymorphone HCL ER si by mouth 60tabs Marc Payne, 11/09/2018 - 5mg every 12 hours DO, MPH 2018 Tablets ER 12HR chronic pain patient Immunizations Description No Information Available Vital Signs Date Vital Result Comment 04/14/2019 11:33am BP Systolic 128 mmHg BP Diastolic 84 mmHg Heart Rate 82 /min Respiratory Rate 20 /min Height 65 inches 5'5" Weight 137.00 lb Pain Level 6 Pain at this time. Pain Level With Medicine 6 on average with meds Pain Level Without Medicine 9 without meds Pain Level After Procedure 3 BP Systolic Recheck 126 mmHg Pulse: 78 BP Diastolic Recheck 72 mmHg Pulse: 78 BMI (Body Mass Index) 22.8 kg/m2 04/04/2019 9:32am BP Systolic 128 mmHg BP Diastolic 80 mmHg Heart Rate 84 /min Respiratory Rate 20 /min Height 65 inches 5'5" Weight 138.00 lb Pain Level 6 Pain at this time. Pain Level With Medicine 6 on average with meds Pain Level Without Medicine 9 without meds BMI (Body Mass Index) 23.0 kg/m2 Results Description No Information Available Procedures Date Code Description Status 04/04/2019 50465 Brief Emotional/Behav Assessment W/ Scoring Doc Per Completed Standard Inst 12/23/2018 Inject Tendon/Ligament Completed 12/23/2018 Inject Tendon/Ligament Completed 12/23/2018 Inject Tendon/Ligament Completed 12/23/2018 Inject Tendon/Ligament Completed 12/23/2018 Inject Tendon/Ligament Completed 12/23/2018 Injection, Tendon Origin/Insertion Completed 12/23/2018 Injection, Tendon Origin/Insertion Completed 12/23/2018 Injection, Single Or Mutiple Trigger Points One Or Two Completed Muscles 12/23/2018 69148 Injection For Nerve Block, Suprascapular Nerve Completed 11/25/2018 74661 Injection For Nerve Block, Suprascapular Nerve Completed 11/25/201893305 Injection, Single Or Mutiple Trigger Points One Or Two Completed Muscles 11/25/2018 Injection, Tendon Origin/Insertion Completed 11/25/2018 Injection, Tendon Origin/Insertion Completed 11/25/201829632 Inject Tendon/Ligament Completed 11/25/2018 Inject Tendon/Ligament Completed 11/25/2018 Inject Tendon/Ligament Completed 11/25/201845880 Inject Tendon/Ligament Completed 11/25/201838339 Inject Tendon/Ligament Completed Medical Devices Description No Information Available Encounters Type Date Location Provider Dx Diagnosis Office Visit 04/04/2019 Main Office as Marc Payne G89.28 Other chronic 9:30a Of 04/07/13 DO, MPH postprocedural pain M53.1 Cervicobrachial syndrome M79.12 Myalgia of auxiliary muscles, head and neck M54.13 Radiculopathy, cervicothoracic region Z79.891 terminal gauger (current) use of opiate analgesic Z13.31 Encounter for screening for depression Office Visit 03/05/2019 1:45p Main Office Marc Payne G89.28 Other chronic as Of 04/07/13 DO, MPH postprocedural pain M53.1 Cervicobrachial syndrome M79.12 Myalgia of auxiliary muscles, head and neck Z79.891 terminal gauger (current) use of opiate analgesic Office Visit 01/29/2019 11:15a Main Office Marc Payne G89.28 Other chronic as Of 04/07/13 DO, MPH postprocedural pain M53.1 Cervicobrachial syndrome M54.2 Cervicalgia M79.12 Myalgia of auxiliary muscles, head and neck Z79.891 terminal gauger (current) use of opiate analgesic Office Visit 01/04/2019 10:30a Main Office Marc Payne G89.28 Other chronic as Of 04/07/13 DO, MPH postprocedural pain M53.1 Cervicobrachial syndrome M54.2 Cervicalgia M79.12 Myalgia of auxiliary muscles, head and neck Z79.891 [facility] (current) use of opiate analgesic Office Visit 12/23/2018 9:45a Main Office Marc Payne G89.28 Other chronic as Of 04/07/13 DO, MPH postprocedural pain M53.1 Cervicobrachial syndrome M54.2 Cervicalgia M79.12 Myalgia of auxiliary muscles, head and neck M65.88 Other synovitis and tenosynovitis, other site M46.02 Spinal enthesopathy, cervical region Office Visit 2018 9:00a Main Office Marc Payne, G89.28 Other chronic as Of 04/07/13 DO, MPH postprocedural pain M53.1 Cervicobrachial syndrome M54.2 Cervicalgia M54.13 Radiculopathy, cervicothoracic region M79.12 Myalgia of auxiliary muscles, head and neck Z79.891 [facility] (current) use of opiate analgesic Office Visit 11/25/2018 9:00a Main Office Marc Payne G89.28 Other chronic as Of 04/07/13 DO, MPH postprocedural pain M53.1 Cervicobrachial syndrome M54.2 Cervicalgia M54.13 Radiculopathy, cervicothoracic region M79.12 Myalgia of auxiliary muscles, head and neck M46.02 Spinal enthesopathy, cervical region M65.88 Other synovitis and tenosynovitis, other site Office Visit 11/09/2018 11:15a Main Office Marc Payne G89.28 Other chronic as Of 04/07/13 , MPH postprocedural pain M53.1 Cervicobrachial syndrome M54.13 Radiculopathy, cervicothoracic region M25.511 Pain in right shoulder Z79.891 [facility] (current) use of opiate analgesic Assessments Date Code Description Provider 04/14/2019 G89.28 Other chronic postprocedural pain Marc Payne DO MPH 04/14/2019 M53.1 Cervicobrachial syndrome Marc Payne DO, MPH 04/14/2019 M54.2 Cervicalgia Marc Payne DO, MPH 04/14/2019 M65.88 Other synovitis and tenosynovitis, other Marc Payne DO , MPH site 04/14/2019 M46.02 Spinal enthesopathy, cervical region Marc Payne DO, MPH 04/14/2019 M79.12 Myalgia of auxiliary muscles, head and neck Payne, Marc, DO, MPH 04/14/2019 M99.01 Segmental and somatic dysfunction of Payne, Marc, DO, MPH cervical region 04/04/2019 G89.28 Other chronic postprocedural pain Payne, Marc, DO, MPH 04/04/2019 M53.1 Cervicobrachial syndrome Payne, Marc, DO, MPH 04/04/2019 M79.12 Myalgia of auxiliary muscles, head and neck Payne, Marc, DO, MPH 04/04/2019 M54.13 Radiculopathy, cervicothoracic region Payne, Marc, DO, MPH 04/04/2019 Z79.891 [facility] (current) use of opiate analgesic Payne, Marc , DO, MPH 04/04/2019 Z13.31 Encounter for screening for depression Payne, Marc, DO, MPH 03/05/2019 G89.28 Other chronic postprocedural pain Payne, Marc, DO, MPH 03/05/2019 M53.1 Cervicobrachial syndrome Payne, Marc, DO, MPH 03/05/2019 M79.12 Myalgia of auxiliary muscles, head and neck Payne, Marc, DO, MPH 03/05/2019 Z79.891 terminal gauger (current) use of opiate analgesic Payne, Marc , DO, MPH 01/29/2019 G89.28 Other chronic postprocedural pain Payne, Marc, DO, MPH 01/29/2019 M53.1 Cervicobrachial syndrome Payne, Marc, DO, MPH 01/29/2019 M54.2 Cervicalgia Payne, Marc, DO, MPH 01/29/2019 M79.12 Myalgia of auxiliary muscles, head and neck Payne, Marc, DO, MPH 01/29/2019 Z79.891 [facility] (current) use of opiate analgesic Payne, Marc , DO, MPH 01/04/2019 G89.28 Other chronic postprocedural pain Payne, Marc, DO, MPH 01/04/2019 M53.1 Cervicobrachial syndrome Payne, Marc, DO, MPH 01/04/2019 M54.2 Cervicalgia Payne, Marc, DO, MPH 01/04/2019 M79.12 Myalgia of auxiliary muscles, head and neck Payne, Marc, DO, MPH 01/04/2019 Z79.891 terminal gauger (current) use of opiate analgesic Payne, Marc [...] head and neck Payne, Marc, DO, MPH 2018 Z79.891 [facility] (current) use of opiate analgesic Payne, Marc , DO, MPH 11/25/2018 G89.28 Other chronic postprocedural pain Payne, Marc, DO, MPH 11/25/2018 M53.1 Cervicobrachial syndrome Payne, Marc, DO, MPH 11/25/2018 M54.2 Cervicalgia Payne, Marc, DO, MPH 11/25/2018 M54.13 Radiculopathy, cervicothoracic region Payne, Marc, DO, MPH 11/25/2018 M79.12 Myalgia of auxiliary muscles, head and neck Marc Payne DO MPH 11/25/2018 M46.02 Spinal enthesopathy, cervical region Marc Payne DO, MPH 11/25/2018 M65.88 Other synovitis and tenosynovitis, other Marc Payne DO , MPH site 11/09/2018 G89.28 Other chronic postprocedural pain Marc Payne DO MPH 11/09/2018 M53.1 Cervicobrachial syndrome Marc Payne DO MPH 11/09/2018 M54.13 Radiculopathy, cervicothoracic region Marc Payne DO MPH 11/09/2018 M25.511 Pain in right shoulder Marc Payne DO MPH 11/09/2018 Z79.891 terminal gauger (current) use of opiate analgesic Marc Payne DO MPH Plan of Treatment Future Appointment(s):05/02/2019 10:00 am - Marc Payne DO MPH at Main Office as Of 04/07/1401 - [facility] chronic postprocedural painComments:Chronic. Symptoms and complaints discussed and reviewed today. No significant changes in physical findings. Continue current medical pain management.M53.1 Cervicobrachial syndromeComments:Chronic. Symptoms and complaints discussed and reviewed today. No significant changes in physical findings. Continue current medical pain management.M54.2 CervicalgiaComments:Chronic. Symptoms and complaints discussed and reviewed today. Physical findings warrant injection therapy. Continue current medical pain management. Injection therapy performed today. Informed consentgiven/ refusal reviewed. See procedure sheet. Injection therapy will lower this patient's pain, increase ROM improve functionality and mitigate the need for increased medication.M65.88 Other synovitis and tenosynovitis, other siteComments:Chronic. Symptoms and complaints discussed and reviewed today. Physical findings reviewed and warrant intervention. Continue current medical pain management. Injection therapy today - tendon sheath. Informed consent given/refusal reviewed. See procedure sheet.M46.02 Spinal enthesopathy, cervical regionComments:Chronic. Symptoms and complaints discussed and reviewed today. Physical findings reviewed and warrant intervention. Patient is stable and comfortable with current medical therapy. Injection therapy today.Tendon I/ O injections performed. See procedure sheet.M79.12 Myalgia of auxiliary muscles , head and neckComments:Symptoms and complaints discussed and reviewed today. Physical findings reviewed and warrant intervention. Injection therapy today - Trigger Point injections. Informed consent given/refusal reviewed. See procedure sheet.M99.01 Segmental and somatic dysfunction of cervical regionComments:Chronic. Symptoms and complaints discussed and reviewed today. Somatic dysfunctions noted warrantingOMT. Continue current medical pain management and OMT. [id number]. OMT performed.AllComments:Continue current medical pain management; injection therapy, osteopathic [...] while maintaining satisfactory side effect profile andminimizing machine long goods helper end-organ damage. Importance of regular nutrition throughout the day discussed.Activity as toleratedContinue with PCP Functional Status Description No Information Available Mental Status Description No Information Available Referrals Description No Information Available
--- OUTSIDE RECORDS SUMMARY | 2019-04-29 11:40 | XMS REPORT | Continuity of Care Document ---
:1960 External Reference #:[id number] Author Name Marc Payne DO, MPH Address [address] [place] [address], [address] [place] [address] Care Team Providers Name Role Phone Eduardo Gonzalez R., M.D. - Care Team Information Teaching Pastor [phone] Neurological Surgery Shane Melendez M.D. - Family Care Team Information Teaching Pastor [phone] Medicine Problems Active Problems Provider Date Chronic postoperative pain Marc Payne DO, MPH Onset: 11/25/2018 Diffuse cervicobrachial syndrome Marc Payne DO, MPH Onset: 11/25/2018 Brachial neuritis Marc Payne DO, MPH Onset: 11/25/2018 Spinal enthesopathy Marc Payne DO, MPH Onset: 11/25/2018 Myalgia of auxiliary muscles, head and neck Marc Payne DO, MPH Onset: Social History Type Date Description Comments Sex Unknown Cigarette Use Current Cigarette Smoker 1 Pack Daily ETOH Use Occasionally consumes alcohol Recreational Drug Use Never Used Drugs Tobacco Use Start: Unknown Patient is a current smoker, smokes every day Smoking Status Reviewed: 03/05/19 Patient is a current smoker, smokes every day Allergies, Adverse Reactions, Alerts Active Allergies Reaction Severity Comments Date Tylenol W/Codeine Nausea and Vomiting 03/23/2012 Lunesta vomit 11/09/2018 Medications Active Medications SIG Qnty Indications Ordering Provider Date Dilaudid si every 8 to 68tabs Marc Payne DO, 2018 2mg Tablets 12 [...] Available Vital Signs Date Vital Result Comment 03/05/2019 2:19pm BP Systolic 128 mmHg BP Diastolic 76 mmHg Heart Rate 74 /min Respiratory Rate 20 /min Height 65 inches 5'5" Weight 136.00 lb Pain Level 6 Pain at this time. Pain Level With Medicine 5 on average with meds Pain Level Without Medicine 9 without meds BMI (Body Mass Index) 22.6 kg/m2 01/29/2019 11:25am BP Systolic 138 mmHg BP Diastolic 78 mmHg Heart Rate 76 /min Respiratory Rate 20 /min Height 65 inches 5'5" Weight 136.00 lb Pain Level 5 Pain at this time. Pain Level With Medicine 4 on average with meds Pain Level Without Medicine 9 without meds BMI (Body Mass Index) 22.6 kg/m2 Results Description No Information Available Procedures Date Code Description Status 12/23/2018 91143 Injection For Nerve Block, Suprascapular Nerve Completed 12/23/201874983 Injection, Single Or Mutiple Trigger Points One Or Two Completed Muscles 12/23/201839314 Injection, Tendon Origin/Insertion Completed 12/23/201809668 Injection, Tendon Origin/Insertion Completed 12/23/201892537 Inject Tendon/Ligament Completed 12/23/201841056 Inject Tendon/Ligament Completed 12/23/201819094 Inject Tendon/Ligament Completed 12/23/201833693 Inject Tendon/Ligament Completed 12/23/201850625 Inject Tendon/Ligament Completed 11/25/201855661 Inject Tendon/Ligament Completed 11/25/201817396 Inject Tendon/Ligament Completed 11/25/201812291 Inject Tendon/Ligament Completed 11/25/201824448 Inject Tendon/Ligament Completed 11/25/201890925 Inject Tendon/Ligament Completed 11/25/201853185 Injection, Tendon Origin/Insertion Completed 11/25/201807254 Injection, Tendon Origin/Insertion Completed 11/25/201884257 Injection, Single Or Mutiple Trigger Points One Or Two Completed Muscles 11/25/2018 34058 Injection For Nerve Block, Suprascapular Nerve Completed Medical Devices Description No Information Available Encounters Type Date Location Provider Dx Diagnosis Office Visit 01/29/2019 Main Office as Marc Payne G89.28 Other chronic 11:15a Of 04/07/13 DO, MPH postprocedural pain M53.1 Cervicobrachial syndrome M54.2 Cervicalgia M79.12 Myalgia of auxiliary muscles, head and neck Z79.891 residential (current) use of opiate analgesic Office Visit 01/04/2019 10:30a Main Office Marc Payne G89.28 Other chronic as Of 04/07/13 DO, MPH postprocedural pain M53.1 Cervicobrachial syndrome M54.2 Cervicalgia M79.12 Myalgia of auxiliary muscles, head and neck Z79.891 residential (current) use of opiate analgesic Office Visit [...] of auxiliary muscles, head and neck Z79.891 belly roller (current) use of opiate analgesic Office Visit 11/25/2018 9:00a Main Office Marc Payne G89.28 Other chronic as Of 04/07/13 DO, MPH postprocedural pain M53.1 Cervicobrachial syndrome M54.2 Cervicalgia M54.13 Radiculopathy, cervicothoracic region M79.12 Myalgia of auxiliary muscles, head and neck M46.02 Spinal enthesopathy, cervical region M65.88 Other synovitis and tenosynovitis, other site Office Visit 11/09/2018 11:15a Main Office Payne, Marc, G89.28 Other chronic as Of 04/07/13 DO, MPH postprocedural pain M53.1 Cervicobrachial syndrome M54.13 Radiculopathy, cervicothoracic region M25.511 Pain in right shoulder Z79.891 residential (current) use of opiate analgesic Assessments Date Code Description Provider 03/05/2019 G89.28 Other chronic postprocedural pain Payne, Marc, DO, MPH 03/05/2019 M53.1 Cervicobrachial syndrome Payne, Marc, DO, MPH 03/05/2019 M79.12 Myalgia of auxiliary muscles, head and neck Payne, Marc, DO, MPH 03/05/2019 Z79.891 belly roller (current) use of opiate analgesic Payne, Marc , DO, MPH 01/29/2019 G89.28 Other chronic postprocedural pain Payne, Marc, DO, MPH 01/29/2019 M53.1 Cervicobrachial syndrome Payne, Marc, DO, MPH 01/29/2019 M54.2 Cervicalgia Payne, Marc, DO, MPH 01/29/2019 M79.12 Myalgia of auxiliary muscles, head and neck Payne, Marc, DO, MPH 01/29/2019 Z79.891 belly roller (current) use of opiate analgesic Payne, Marc , DO, MPH 01/04/2019 G89.28 Other chronic postprocedural pain Payne, Marc, DO, MPH 01/04/2019 M53.1 Cervicobrachial syndrome Payne, Mrac, DO, MPH 01/04/2019 M54.2 Cervicalgia Payne, Marc, DO, MPH 01/04/2019 M79.12 Myalgia of auxiliary muscles, head and neck Payne, Marc, DO, MPH 01/04/2019 Z79.891 belly roller (current) use of opiate analgesic Payne, Marc [...] neck Payne, Marc, DO, MPH 2018 Z79.891 residential (current) use of opiate analgesic Payne, Marc , DO, MPH 11/25/2018 G89.28 Other chronic postprocedural pain Payne, Marc, DO, MPH 11/25/2018 M53.1 Cervicobrachial syndrome Payne, Marc, DO, MPH 11/25/2018 M54.2 Cervicalgia Payne, Marc, DO, MPH 11/25/2018 M54.13 Radiculopathy, cervicothoracic region Payne, Marc, DO, MPH 11/25/2018 M79.12 Myalgia of auxiliary muscles, head and neck Payne, Marc, DO, MPH 11/25/2018 M46.02 Spinal enthesopathy, cervical region Payne, Marc, DO, MPH 11/25/2018 M65.88 Other synovitis and tenosynovitis, other Payne, Marc, DO , MPH site 11/09/2018 G89.28 Other chronic postprocedural pain Payne, Marc, DO, MPH 11/09/2018 M53.1 Cervicobrachial syndrome Marc Payne DO MPH 11/09/2018 M54.13 Radiculopathy, cervicothoracic region Marc Payne DO MPH 11/09/2018 M25.511 Pain in right shoulder Marc Payne DO MPH 11/09/2018 Z79.891 belly roller (current) use of opiate analgesic Marc Payne DO MPH Plan of Treatment Future Appointment(s):04/04/2019 9:30 am - Marc Payne DO, MPH at Main Office as Of 04/07/1411 - Marc Payne DO, MPHG89.28 Other chronic [...] physical findings. 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 Importance of regular nutrition throughout the day discussed.Activity as toleratedContinue with PCP Functional Status Description No Information Available Mental Status Description No Information Available Referrals Description No Information Available
[2019-04-29 11:55] VITALS: BP 151/86
--- NOTE | 2019-04-29 12:11 | UC ---
Respiratory Complaint HPI - HPI Summary HPI Summary: She started about a week ago with nasal congestion. This quickly turned into a cough and now she is paroxysmally coughing. Her chest hurts when she coughs and a little bit when she takes a deep breath. This came second. She is a smoker. Had a history of asthma when she was younger but states that she has no respiratory problems now. - History of Current Complaint Chief Complaint: UCRespiratory Stated Complaint: COUGH Time Seen by Provider: 04/29/19 11:46 Hx Obtained From: Patient Onset/Duration: Gradual Onset, Lasting Days Timing: Constant Severity Initially: Moderate Severity Currently: Moderate Pain Intensity: 6 Character: Cough: Productive Aggravating Factors: Nothing Alleviating Factors: Nothing Associated Signs And Symptoms: Positive: Nasal Congestion - Allergies/Home Medications Allergies/Adverse Reactions: Allergies Allergy/AdvReac Type Severity Reaction Status Date / Time codeine Allergy Vomiting Verified 04/29/19 11:47 [email or web address] [From Lunesta] Allergy Vomiting Verified 04/29/19 11:47 Home Medications: Home Medications Lisinopril TAB* [Prinivil TAB 10 MG*] 20 mg PO QAM 03/02/18 [History Confirmed 04/29/19] Aspirin/Acetaminophen/Caffeine [Excedrin Migraine Caplet] 1 each PO BID [History Confirmed 04/29/19] L.acidoph,Paracasei, B.lactis [Probiotic] 1 each PO QAM 05/11/18 [History Confirmed 04/29/19] Loratadine 10 mg PO DAILY PRN 05/11/18 [History Confirmed 04/29/19] Multivitamin [Multivitamins] 1 cap PO QAM 05/11/18 [History Confirmed 04/29/19] Alendronate Sodium [Alendronate Sodium-] 70 mg PO WEEKLY 04/29/19 [History Confirmed 04/29/19] Chlorzoxazone 500 mg PO BID 04/29/19 [History Confirmed 04/29/19] Duloxetine HCl [Drizalma Sprinkle] 60 mg PO DAILY 04/29/19 [History Confirmed ] Hydromorphone HCl 2 mg PO TID 04/29/19 [History Confirmed 04/29/19] PMH/Surg Hx/FS Hx/Imm Hx Previously Healthy: Yes Endocrine History: Dyslipidemia Cardiovascular History: Hypertension Respiratory History: Asthma, Bronchitis Other History Of: Negative For: Anticoagulant Therapy - Surgical History Surgical History: Yes Surgery Procedure, Year, and Place: [facility] AT AGE 19 [place]. PARTIAL HYSTERECTOMY, [facility]. REMOVED OVARY,[facility]. RIGHT KNEE ARTHROSCOPY, [facility]. RIGHT ARM TENDON RELEASE, [facility]. C4,C5,6,7 fusion 2011-[place]. C2-C6 fusion 2018 [facility]. HYSTERECTOMY. C6-C7 FUSION 2011, [place]. MAY 2018 NECK SURGERY Other Surgical History: neck fusion - Family History Known Family History: Positive: None, Cardiac Disease, Hypertension - Social History Alcohol Use: Rare Substance Use Type: None Smoking Status (MU): Light Every Day Tobacco Smoker Type: Cigarettes Amount Used/How Often: 3/4 PPD Length of Time of Smoking/Using Tobacco: < 1 PPD Have You Smoked in the Last Year: Yes When Did the Patient Quit Smoking/Using Tobacco: FEB 2018 - Immunization History Most Recent Influenza Vaccination: 11/2014 Most Recent Pneumonia Vaccination: NONE Review of Systems All Other Systems Reviewed And Are Negative: Yes Constitutional: Positive: Negative Skin: Positive: Negative Eyes: Positive: Negative ENT: Positive: Nasal Discharge, Sinus Congestion Respiratory: Positive: Cough Cardiovascular: Positive: Negative Gastrointestinal: Positive: Negative Neurological/Mental Status: Positive: Negative Physical Exam - Summary Physical Exam Summary: She is nontoxic in appearance with stable vital signs. Triage Information Reviewed: Yes Appearance: Well-Appearing Vital Signs: Initial Vital Signs Temp 98.9 F 04/29/19 11:47 Pulse 93 04/29/19 11:47 Resp 18 04/29/19 11:47 BP 151/86 04/29/19 11:47 Pulse Ox 98 04/29/19 11:47 Vital Signs Reviewed: Yes ENT: Positive: Nasal congestion Neck exam: Normal Respiratory: Positive: Lungs clear, Normal breath sounds, No respiratory distress, No accessory muscle use Cardiovascular Exam: Normal Abdomen Description: Positive: Nontender Neurological Exam: Normal Respiratory Course/Dx - Course Course Of Treatment: This sounds like a bronchitis. Likely started as a viral infection. Given her history of asthma and current smoking for many years time will treat her with antibiotics as well as symptomatic with cough medication. I will treat her with a Z-Misha and Tessalon Perles. - Differential Dx/Diagnosis Provider Diagnosis: Bronchitis Discharge ED - Sign-Out/Discharge Documenting (check all that apply): Patient Departure All imaging exams completed and their final reports reviewed: No Studies - Discharge Plan Condition: Stable Disposition: HOME Patient Education Materials: Acute Bronchitis (ED), How to Stop Smoking (ED) Referrals: Shane Melendez MD [Primary Care Provider] - - Billing Disposition and Condition Condition: STABLE Disposition: Home
== END 2019-04-29 12:36 | disposition home or self-care (01) ==
LOC: UCEAST 11:02
DX: J40 Bronchitis, not specified as acute or chronic (principal); J45.909 Unspecified asthma, uncomplicated; I10 Essential (primary) hypertension; Z79.82 Long term (current) use of aspirin; Z79.899 Other long term (current) drug therapy; F17.210 Nicotine dependence, cigarettes, uncomplicated; Z88.5 Allergy status to narcotic agent; Z88.8 Allergy status to other drugs, medicaments and biological substances
CPT/HCPCS: 96372; 99212; G0463

== ENCOUNTER 2020-02-15 10:25 | Observation (INO) ==
[~2020-02-15 10:25] MED LIST changes: +Buffered Lidocaine 1% SYRIN 1 ml INTRADERM ONE; -Buffered Lidocaine 1% SYRIN* 1 ML/SYRINGE INTRADERM ONE; +Famotidine IV 10 MG/ML 2 ml VIAL (20 mg) IV ONE; +Lactated Ringers 1000 ml BAG 1,000 ML IV SCH
[2020-02-15] MEDS ORDERED: Famotidine IV 10 MG/ML 2 ml VIAL (20 mg) ONE (10:37)
[2020-02-15 11:50] LABS: BUN/Creatinine Ratio 18.2 (8-20); Calcium 10.7 mg/dL (8.6-10.3); EGFR African American 93.2 (>60); Potassium 3.9 mmol/L (3.5-5.0)
[2020-02-15] MEDS ORDERED: DiMENhydriNATE IV 50 mg/ml 1 ml VIAL IV PUSH PRN (12:37)
[2020-02-15] MEDS ORDERED: Naloxone 0.4 mg VIAL 0.4 mg/ml 1 ml VIAL IV PRN (12:37)
[2020-02-15] MEDS ORDERED: Midazolam 5 mg/5 ml VIAL 1 mg/ml 5 ml VIAL (5 mg) ONE (12:48)
[2020-02-15] MEDS ORDERED: fentaNYL 100 mcg/2 ml 50 MCG/ML VIAL ONE ×2 (12:48→13:37)
[2020-02-15] MEDS ORDERED: Lidocaine 1% w EPI 1:100,000 MDV 20 ML VIAL ONE (12:56)
[2020-02-15] MEDS ORDERED: Succinylcholine 200 mg VIAL 20 mg/ml 10 ml VIAL (200 mg) ONE (13:10)
[2020-02-15] MEDS ORDERED: Rocuronium 50 mg VIAL 10 mg/ml 5 ml VIAL (50 mg) ONE (13:13)
[2020-02-15] MEDS ORDERED: Phenylephrine 40 mcg/mL 10mL (400mcg) SYRINGE ONE ×2 (13:50→14:15)
[2020-02-15] MEDS ORDERED: EPHEDrine (Pressors) 50 MG/ML VIAL ONE (13:50)
[2020-02-15] MEDS ORDERED: Propofol 10 MG/ML 20 ML BTL ONE ×2 (13:51→15:17)
[2020-02-15] MEDS ORDERED: Ondansetron 4 mg VIAL 2 MG/ML 2 ml VIAL ONE (13:51)
[2020-02-15] MEDS ORDERED: DiMENhydriNATE IV 50 mg/ml 1 ml VIAL ONE (13:51)
[2020-02-15] MEDS ORDERED: Dexamethasone IV 4 MG/ML VIAL 1 ml VIAL ONE (13:51)
[2020-02-15] MEDS ORDERED: Lidocaine 2% PF 5 ML VIAL ONE (13:52)
[2020-02-15] MEDS ORDERED: Phenylephrine IV 10 MG/ML 1 ml VIAL ONE (14:28)
[2020-02-15] MEDS ORDERED: HYDROmorphone 1 MG/1 ML SYRINGE ONE ×2 (14:33→16:11)
[2020-02-15] MEDS ORDERED: Acetaminophen IV 1 GM/100ML 100 ML ONE (15:22)
[2020-02-15] MEDS: HYDROmorphone 1 MG/1 ML SYRINGE IV PRN ×3 (16:13→16:34)
[2020-02-15 18:15] LABS: BUN/Creatinine Ratio 18.6 (8-20); Calcium 9.5 mg/dL (8.6-10.3); EGFR Non-African American 85.9 (>60); Potassium 3.7 mmol/L (3.5-5.0)
[2020-02-15] MEDS ORDERED: Ondansetron 4 mg VIAL 2 MG/ML 2 ml VIAL IV PRN (18:20)
[2020-02-15] MEDS ORDERED: ASA-APAP-CAFFEINE ES (NF) TAB PO PRN (18:43)
[2020-02-15] MEDS ORDERED: LACTATED RINGERS 1000 ML BAG IV SCH (19:00)
[2020-02-15] MEDS ORDERED: EXCEDRIN EXTRA STRENGTH PO PRN (19:08)
[2020-02-15] MEDS: ASA APAP CAFFEINE ES PO PRN (20:01)
[2020-02-15] MEDS ORDERED: Mometasone 220 MCG MDI INH SCH (21:00)
[2020-02-15] MEDS: Calcium/Vitamin D TAB 250/125 TAB PO SCH (21:40)
[2020-02-15] MEDS: DULoxetine DR 30 mg CAP PO SCH (21:41)
[2020-02-16 00:37] LABS: BUN/Creatinine Ratio 15.2 (8-20); Calcium 9.3 mg/dL (8.6-10.3); EGFR African American 90.4 (>60); EGFR Non-African American 74.7 (>60); Potassium 3.9 mmol/L (3.5-5.0)
[2020-02-16 07:08] LABS: ABS Monocytes 0.6 10^3/ul (0-0.8); Eosinophil % 0.4 %; Hematocrit 36 % (35-47); Hemoglobin 12.2 g/dL (12.0-16.0); Lymphocyte % 20.7 %; Mean Corpuscular HGB Conc 34 g/dL (31-36); Mean Corpuscular Hemoglobin 33 pg (27-31); Mean Corpuscular Volume 96 fL (80-97); Mean Platelet Volume 8.5 fL (7.4-10.4); Platelet Count 172 10^3/uL (150-450); Red Blood Count 3.71 10^6 /uL (3.70-4.87); Red Cell Distribution Width 14 % (10-15); White Blood Count 9.7 10^3/uL (3.5-10.8)
[2020-02-16 07:21] LABS: BUN/Creatinine Ratio 16.2 (8-20); Calcium 9.3 mg/dL (8.6-10.3); EGFR African American 97.5 (>60); EGFR Non-African American 80.6 (>60); Potassium 3.9 mmol/L (3.5-5.0)
[2020-02-16] MEDS: DULoxetine DR 30 mg CAP PO SCH (09:20)
[2020-02-16] MEDS: Calcium/Vitamin D TAB 250/125 TAB PO SCH ×2 (09:20→13:13)
[2020-02-16 11:05] VITALS: BP 126/71
[2020-02-16] MEDS ORDERED: ASA-APAP-CAFFEINE ES (NF) TAB PO ONE (11:13)
[2020-02-16 12:56] LABS: BUN/Creatinine Ratio 18.3 (8-20); Calcium 9.6 mg/dL (8.6-10.3); EGFR African American 102.3 (>60); EGFR Non-African American 84.6 (>60); Potassium 3.4 mmol/L (3.5-5.0)
[2020-02-16] MEDS: ASA APAP CAFFEINE ES PO PRN (13:13)
== END 2020-02-16 13:30 | disposition home or self-care (01) ==
LOC: SSU 10:25 → OR 10:25
PROVIDERS: ADMIT Otolaryngology; ATTEND Otolaryngology